=== PATIENT | female | born 1940 | race Caucasian/White ===

== ENCOUNTER → 2017-11-01 | Outpatient (CLI) | payer OTHER ==
[2016-03-09 09:29] VITALS: BP 148/72
--- NOTE | 2017-11-01 12:15 | CT ---
History: Dysarthria and left-sided weakness since Saturday Study: CT head without contrast. Sagittal and coronal reformations were provided. Comparison: February 19, 2016 Findings: There is no significant interval change. The ventricles and sulci are minimally prominent w ithout mass effect. There is moderate to severe diffuse periventricular white matter low attenuation. There is no intracranial hemorrhage or mass or edema or subdural collection of fluid. Impression: No interval change and no acute disease. Unchanged periventricular white-matter small-ves rudy disease. Reported By:
--- NOTE | 2017-11-01 16:19 | MRI ---
STUDY: MRI OF THE BRAIN WITHOUT GADOLINIUM HISTORY: Dysarthria and anarthria. Weakness to left side since Saturday. Technique: Multiplanar multi-sequence MRI of the brain was obtained utilizing standard departmental p rotocol. Sagittal and axial T1, axial T2, FLAIR, diffusion (DWI/ADC) images through the brain were pe rformed. Comparison: Head CTs from November 01, 2017. Findings: Note is made of failure fluid attenuation on multiple axial T2 FLAIR images from the latera l ventricles to the vertex. The sulci, cisterns and ventricles are prominent consistent with diffuse volume loss. There are confl uent and scattered foci of T2 prolongation in the periventricular and subcortical white matter of bot h hemispheres. This is a nonspecific finding which likely represents microangiopathic change in a pat ient of this age. There is a linear focus of decreased diffusion in the right basal ganglia. There is no evidence of acute territorial infarction, hemorrhage, mass, mass effect, or midline shift . There are no abnormal intra-axial or extra-axial fluid collections. The major intracranial vascular flow voids appear intact. The left vertebral artery appears dominant. IMPRESSION: 1. 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 2. Nonspecific white matter change and volume loss. Reported By:
== END ==
LOC: RAD 11:43
PROVIDERS: ATTEND Internal Medicine
DX: R47.1 Dysarthria and anarthria (principal)
CPT/HCPCS: 70450; 70551

== ENCOUNTER 2021-05-26 11:48 | Inpatient (IN) ==
[2021-05-26 11:57] VITALS: BMI 23.0
[2021-05-26 12:38] LABS: BASOPHILS # (AUTO) 0.1 X10^3/uL (0.0-0.1); BASOPHILS % (AUTO) 0.4 % (0.2-1.0); EOSINOPHILS % (AUTO) 0.2 % (0.9-2.9); HEMATOCRIT 26.9 % (36.0-47.0); HEMOGLOBIN 9.1 g/dL (12.0-16.0); LYMPHOCYTES # (AUTO) 0.5 X10^3/uL (1.3-2.9); LYMPHOCYTES % (AUTO) 2.4 % (21.0-51.0); MEAN CORPUSCULAR HEMOGLOBIN 33.9 pg (27.0-34.0); MEAN CORPUSCULAR HGB CONC 33.8 g/dL (33.0-35.0); MEAN CORPUSCULAR VOLUME 100.3 fL (80.0-100.0); MEAN PLATELET VOLUME 8.5 fL (7.4-11.0); MONOCYTES # (AUTO) 0.9 x10^3/uL (0.3-0.8); MONOCYTES % (AUTO) 4.3 % (0.0-13.0); NEUTROPHILS # (AUTO) 20.1 x10^3/uL (2.2-4.8); NEUTROPHILS % (AUTO) 92.7 % (42.0-75.0); PLATELET COUNT 408 X10^3/uL (150.0-450.0); RED BLOOD COUNT 2.68 X10^6/uL (3.5-5.4); RED CELL DISTRIBUTION WIDTH 17.3 % (11.6-16.5); WHITE BLOOD COUNT 21.7 X10^3/uL (3.6-10.0)
[2021-05-26] MEDS ORDERED: TYLENOL 325 MG TAB PO ONE ×2 (12:47→12:48)
--- NOTE | 2021-05-26 12:50 | RAD ---
HISTORYFALL, BILATERAL HIP PAINSTUDYHIPS BILATERALCOMPARISONNoneTECHNIQUEAP pelvis and lateral view of each hip.FINDINGSThere is bilateral coxa profunda mild right and mild left hip osteoarthrosis. PLIF from L4 through S1. Severe degenerative disc disease at L3-4. Mild bilateral SI joint osteoarthrosis. No fracture or aggressive osseous lesion.IMPRESSIONMild bilateral hip osteoarthrosis. No fracture identified.Electronically signed by: Graham Almanza (May 26, 2021 12:48:30)
--- NOTE | 2021-05-26 12:54 | RAD ---
HISTORYFALL, WILTON HIP AND LEFT LOWER LEG PAIN CROHN'S, SPINE, GBSTUDYLOWER LEG, TIB/FIB LEFTCOMPARISONNoneFINDINGSAP and lateral radiographs of the lower extremity demonstrate no evidence for acute cortical disruption. No significant soft tissue abnormality can be identified.IMPRESSIONNo acute fracture.Electronically signed by: TANK SUTTON (May 26, 2021 12:52:40)
[2021-05-26 13:18] LABS: ALANINE AMINOTRANSFERASE 26 Units/L (12-78); ALBUMIN 2.3 g/dL (3.4-5.0); ALKALINE PHOSPHATASE 194 Units/L (46-116); ASPARTATE AMINO TRANSFERASE 54 Units/L (15-37); BLOOD UREA NITROGEN 35 mg/dL (7-18); CALCIUM 8.7 mg/dL (8.5-10.1); CHLORIDE 92 mmol/L (98-107); CKMB % 0.4 % (<4); COR CA(FOR HYPOALB) 10.1 mg/dL (8.5-10.1); COR NA(FOR HYPERGLY) 127 mmol/L (136-145); CREATINE KINASE 517 Units/L (26-192); CREATINE KINASE MB 2.1 ng/mL (0-4.0); CREATININE 2.15 mg/dL (0.55-1.02); SODIUM 127 mmol/L (136-145); TOTAL PROTEIN 6.2 g/dL (6.4-8.2); TROPONIN I < 0.02 ng/mL (0-1.5); eGFR NON BLACK RACES 23 (>60)
[2021-05-26 13:21] LABS: BAND NEUTROPHILS % 10 % (0-10)
[2021-05-26 13:22] LABS: ANISOCYTOSIS SLIGHT; GIANT PLATELET FEW; METAMYELOCYTES % 1; OVALOCYTES SLIGHT; PLATELET MORPHOLOGY COMMENT ABNORMAL (NORMAL)
--- NOTE | 2021-05-26 13:24 | CT ---
BRAIN W/O CONHistory: DIZZINESS AND HX OF FALLTechnique: CT images of the brain were obtained without contrast. Reformatted images in the coronal and sagittal planes also generated for review. Automatic exposure was utilized.Comparison: No recent exams are available for comparison.Findings: There is age-appropriate generalized cerebral atrophy with commensurate ventricular and sulcal enlargement. 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 There are patchy and confluent areas of periventricular and subcortical white matter hypoattenuation, which are nonspecific but are likely on the basis of chronic small vessel ischemic disease. There is no intracranial hemorrhage, extra-axial collection, hydrocephalus, mass or midline shift. Visualized paranasal sinuses and mastoid air cells are clear. Imaged extracranial structures are grossly unremarkable.Impression:No acute intracranial abnormality.Age related atrophy and chronic ischemic changes as above.Electronically signed by: CHRISTIANO CARRERA (May 26, 2021 13:22:43)
--- NOTE | 2021-05-26 13:52 | DR.EXTPAIN ---
HPI Time seen Time Seen by Provider: 05/26/21 12:15 PCP Primary Care Physician: DR HOLT HPI Comment HPI Comment: Patient notes that she thinks that she passed out today. She remembers getting up to go to the bathroom, and then notes that she "came to" on the floor of her kitchen. Notes that she fell a few days ago and was seen by her PCP. CT head at that time was negative. Patient sent to ED today by PCP for xrays with plan to admit patient for further eval. Patient notes that her head is still hurting from the fall last week, but otherwise has no other complaint of pain. Complaint/Symptoms Chief Complaint:: PT FELL ABOUT TWO WEEKS AGO. PT STATES THAT SINCE THEN SHE HAS HAD INCREASING GENERALIZED WEAKNESS. PT C/O PAIN BEHIND EARS BILATERALLY BUT DENIES ANY OTHER PAIN OR DIZZINESS. COVID-19 Coronavirus risk:travel/contact w/high risk person: No Has patient experienced Coronavirus symptoms: No Source History Provided: Patient Mode of arrival Mode of Arrival: Ambulatory Timing Onset of Chief Complaint: 05/26/21 PMH PMH Past Medical History: Yes Past Medical History: Hypertension Past Medical History Comment: KIMMY 2 DISEASE, CHRONS Past Surgical History: Yes Surgical History: and Hysterectomy Family History History of Family Medical Conditions: Yes Family Medical History: Cancer Social History Does patient currently use any type of tobacco product: No Have you used tobacco products in the last 12 months: No Type of Tobacco Use: None Does any household member use tobacco: No Alcohol Use: None Do you use any recreational Drugs:: No Lives With: Alone Lives Where: Home Travel Risk Coronavirus risk:travel/contact w/high risk person: No Has patient experienced Coronavirus symptoms: No Infectious screening In the last 2 months have you had wt loss of >10#?: NO Have you had fever, night sweats or hemotysis?: No Have you traveled outside the country in the last 6 months?: No Isolation: Standard ROS Review of Systems Constitutional: See HPI Neurological: Headache All Other Systems: Reviewed and Negative PE Vital Signs Vitals: Temperature 99.5 F Pulse Rate [Standing] 104 Pulse Rate [Sitting] 100 Pulse Rate [Lying] 96 Pulse Rate 87 Respiratory Rate 20 Blood Pressure [Left Arm] 148/72 Blood Pressure [Right Arm] 130/63 Blood Pressure [Standing] 155/55 Blood Pressure [Sitting] 148/67 Blood Pressure [Lying] 150/64 Blood Pressure 134/56 O2 Sat by Pulse Oximetry 97 General Limitations: No Limitations General Appearance: Alert and In No Apparent Distress Head Head Exam: Normal Inspection, Atraumatic and Normocephalic Eyes Eye exam: Normal Appearance and EOMI ENT ENT Exam: Normal Exam Neck Neck Exam: Normal Inspection and Trachea Midline Chest Chest Inspection: Normal Inspection and Symmetric Chest Wall Rise Respiratory Respiratory Exam: Normal Lung Sounds Bilat Respiratory Exam: Bilateral: Clear to Auscultation Cardiovascular Cardiovascular Exam: Regular Rate, Normal Rhythm and Normal Heart Sounds Abdominal Exam Abdominal Exam: Normal Inspection, Normal Bowel Sounds and Soft Extremities Extremities Exam: Other (amll ecchymosis on left knee) Lower Extremities Hip/Pelvis Exam: Normal Inspection and Pelvis Stable Neurological Neurological Exam: Alert and Oriented X3 Psychiatric Psychiatric Exam: Normal Affect and Normal Mood Skin Skin Exam: Warm, Dry and Intact COURSE Treatment Treatment: uneventful ED course Consultation Consultation Comments: Patient admitted to Dr. Holt [facility] Labs Reviewed Laboratory Results Reviewed?: Yes Result Diagrams: 05/26/21 12:28 05/26/21 12:28 Laboratory: WBC 21.7 X10^3/uL (3.6-10.0) H 05/26/21 12:28 RBC 2.68 X10^6/uL (3.5-5.4) L 05/26/21 12:28 Hgb 9.1 g/dL (12.0-16.0) L 05/26/21 12:28 Hct 26.9 % (36.0-47.0) L 05/26/21 12:28 MCV 100.3 fL (80.0-100.0) H 05/26/21 12:28 MCH 33.9 pg (27.0-34.0) 05/26/21 12:28 MCHC 33.8 g/dL (33.0-35.0) 05/26/21 12:28 RDW 17.3 % (11.6-16.5) H 05/26/21 12:28 Plt Count 408 X10^3/uL (150.0-450.0) 05/26/21 12:28 Plt Count Comment Adequate (ADEQUATE) 05/26/21 12:28 MPV 8.5 fL (7.4-11.0) 05/26/21 12:28 Neut % (Auto) 92.7 % (42.0-75.0) H 05/26/21 12:28 Lymph % (Auto) 2.4 % (21.0-51.0) L 05/26/21 12:28 [place] % (Auto) 4.3 % (0.0-13.0) 05/26/21 12:28 Eos % (Auto) 0.2 % (0.9-2.9) L 05/26/21 12:28 Baso % (Auto) 0.4 % (0.2-1.0) 05/26/21 12:28 Neut # (Auto) 20.1 x10^3/uL (2.2-4.8) H 05/26/21 12:28 Lymph # (Auto) 0.5 X10^3/uL (1.3-2.9) L 05/26/21 12:28 [place] # (Auto) 0.9 x10^3/uL (0.3-0.8) H 05/26/21 12:28 Eos # (Auto) 0.0 x10^3/uL (0.0-0.2) 05/26/21 12:28 Baso # (Auto) 0.1 X10^3/uL (0.0-0.1) 05/26/21 12: Absolute Nucleated RBC 0.0 /100WBC 05/26/21 12:28 Total Counted 100 05/26/21 12:28 Neutrophils % (Manual) 84 % (39-76) H 05/26/21 12:28 Band Neutrophils % 10 % (0-10) 05/26/21 12:28 Lymphocytes % (Manual) 1 % (13-43) L 05/26/21 12:28 Monocytes % (Manual) 4 % (4-9) 05/26/21 12:28 Metamyelocytes % 1 05/26/21 12:28 Giant Platelets Few 05/26/21 12:28 Plt Morphology Comment Abnormal (NORMAL) A 05/26/21 12:28 RBC Morphology Abnormal (NORMAL) A 05/26/21 12:28 Anisocytosis Slight A 05/26/21 12:28 Macrocytosis Slight A 05/26/21 12:28 Ovalocytes Slight A 05/26/21 12:28 Sodium 127 mmol/L (136-145) L 05/26/21 12:28 Corrected Sodium 127 mmol/L (136-145) L 05/26/21 12:28 Potassium 5.3 mmol/L (3.5-5.1) H 05/26/21 12:28 Chloride 92 mmol/L (98-107) L 05/26/21 12:28 Carbon Dioxide 27.0 mmol/L (21-32) 05/26/21 12:28 BUN 35 mg/dL (7-18) H 05/26/21 12:28 Creatinine 2.15 mg/dL (0.55-1.02) H 05/26/21 12:28 Est GFR (MDRD) Af Amer 28 (>60) L 05/26/21 12:28 Est GFR (MDRD) Non-Af 23 (>60) L 05/26/21 12:28 Glucose 113 mg/dL (65-99) H 05/26/21 12:28 Calcium 8.7 mg/dL (8.5-10.1) 05/26/21 12:28 Corrected Calcium 10.1 mg/dL (8.5-10.1) 05/26/21 12:28 Total Bilirubin 0.90 mg/dL (0.2-1.0) 05/26/21 12:28 AST 54 Units/L (15-37) H 05/26/21 12:28 ALT 26 Units/L (12-78) 05/26/21 12:28 Alkaline Phosphatase 194 Units/L (46-116) H 05/26/21 12:28 Creatine Kinase 517 Units/L (26-192) H 05/26/21 12:28 CK-MB (CK-2) 2.1 ng/mL (0-4.0) 05/26/21 12:28 CK/CKMB % Calc 0.4 % (<4) 05/26/21 12:28 Troponin I < 0.02 ng/mL (0-1.5) 05/26/21 12:28 Total Protein 6.2 g/dL (6.4-8.2) L 05/26/21 12:28 Albumin 2.3 g/dL (3.4-5.0) L 05/26/21 12:28 Globulin 3.9 g/dL (2.5-4.5) 05/26/21 12:28 Albumin/Globulin Ratio 0.6 Ratio (1.1-2.1) L 05/26/21 12:28 XRAY X-ray Results: BRAIN W/O CON History: DIZZINESS AND HX OF FALL Technique: CT images of the brain were obtained without contrast. Reformatted images in the coronal and sagittal planes also generated for review. Automatic exposure was utilized. Comparison: No recent exams are available for comparison. Findings: There is age-appropriate generalized cerebral atrophy with commensurate ventricular and sulcal enlargement. 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 There are patchy and confluent areas of periventricular and subcortical white matter hypoattenuation, which are nonspecific but are likely on the basis of chronic small vessel ischemic disease. There is no intracranial hemorrhage, extra-axial collection, hydrocephalus, mass or midline shift. Visualized paranasal sinuses and mastoid air cells are clear. Imaged extracranial structures are grossly unremarkable. Impression: No acute intracranial abnormality. Age related atrophy and chronic ischemic changes as above. Electronically signed by: CHRISTIANO CARRERA (May 26, 2021 13:22:43) HISTORY FALL, BILATERAL HIP PAIN STUDY HIPS BILATERAL COMPARISON None TECHNIQUE AP pelvis and lateral view of each hip. FINDINGS There is bilateral coxa profunda mild right and mild left hip osteoarthrosis. PLIF from L4 through S1. Severe degenerative disc disease at L3-4. Mild bilateral SI joint osteoarthrosis. No fracture or aggressive osseous lesion. IMPRESSION Mild bilateral hip osteoarthrosis. No fracture identified. Electronically signed by: Graham Almanza (May 26, 2021 12:48:30) HISTORY FALL, WILTON HIP AND LEFT LOWER LEG PAIN CROHN'S, SPINE, GB STUDY LOWER LEG, TIB/FIB LEFT COMPARISON None FINDINGS AP and lateral radiographs of the lower extremity demonstrate no evidence for acute cortical disruption. No significant soft tissue abnormality can be identified. IMPRESSION No acute fracture. Electronically signed by: TANK SUTTON (May 26, 2021 12:52:40) Opioid Opioid Risk Tool Age (Kvng box if 16-45): No History of Preadolescent Sexual Abuse: No Total: 0 Total Score Risk Category: Low Risk Copyright: [facility] predicting aberrant behaviors Diagnosis Discharge Problem: Hyponatremia Syncopal episodes Qualifiers: Syncope type: unspecified Qualified Code(s): R55 - Syncope and collapse Acute renal failure Qualifiers: Acute renal failure type: unspecified Qualified Code(s): N17.9 - Acute kidney failure, unspecified
[2021-05-26] MEDS: NS 1000 ML 1,000 ML IV SCH (15:32)
--- NOTE | 2021-05-26 16:36 | RAD ---
HISTORYSYNCOPESTUDYCHEST, 1 VIEWCOMPARISONNoneTECHNIQUESingle frontal view of the chestFINDINGSThere is mild elevation of the right diaphragm. The heart size is upper limits of normal caliber. There are no consolidating pulmonary infiltrates. The pleural spaces are clear. There is no free air or pneumothorax. Linear fibroatelectatic changes are demonstrated within the dependent lung bases. Postsurgical changes of the bilateral shoulders are observed. No acute osseous abnormalities of the chest are identified. Degenerative changes of the bilateral glenohumeral joints noted.IMPRESSIONChronic senescent lung changes with no acute radiographic abnormalities of the chest otherwise noted.Electronically signed by: JAIRO TODD (May 26, 2021 16:37:34)
[2021-05-26] MEDS: TYLENOL 325 MG TAB PO PRN (21:00)
[2021-05-26] MEDS: XANAX PO PRN (21:00)
[2021-05-26] MEDS: NEURONTIN CAP 300 MG PO SCH (21:00)
[2021-05-26] MEDS: NORVASC TAB 10 MG PO SCH (21:00)
[2021-05-26 21:20] LABS: CKMB % 0.4 % (<4); CREATINE KINASE 454 Units/L (26-192); CREATINE KINASE MB 1.6 ng/mL (0-4.0); TROPONIN I < 0.02 ng/mL (0-1.5)
[2021-05-26] MEDS: SINEquan PO PRN (21:30)
[2021-05-27 00:20] LABS: BILIRUBIN,URINE NEGATIVE (NEGATIVE); BLOOD/HEMOGLOBIN,URINE 3+ (NEGATIVE); GLUCOSE, URINE NEGATIVE (NEGATIVE); KETONES,URINE NEGATIVE (NEGATIVE); LEUKOCYTE ESTERASE ,URINE 3+ (NEGATIVE); NITRITES,URINE NEGATIVE (NEGATIVE); PROTEIN,URINE 3+ (NEGATIVE); UROBILINOGEN,URINE NORMAL (NORMAL)
[2021-05-27 00:32] LABS: APPEARANCE,URINE CLOUDY (CLEAR); COLOR,URINE YELLOW (YELLOW)
[2021-05-27 00:33] LABS: BACTERIA,URINE 3+ /HPF (NEGATIVE); RBC,URINE NONE SEEN /HPF (0-3); SQUAMOUS EPITHELIAL CELL,UR NEGATIVE /HPF (NEGATIVE)
[2021-05-27 03:36] LABS: BASOPHILS # (AUTO) 0.1 X10^3/uL (0.0-0.1); BASOPHILS % (AUTO) 0.6 % (0.2-1.0); EOSINOPHILS # (AUTO) 0.1 x10^3/uL (0.0-0.2); EOSINOPHILS % (AUTO) 0.4 % (0.9-2.9); HEMATOCRIT 25.6 % (36.0-47.0); HEMOGLOBIN 8.8 g/dL (12.0-16.0); LYMPHOCYTES # (AUTO) 1.1 X10^3/uL (1.3-2.9); MEAN CORPUSCULAR HEMOGLOBIN 34.2 pg (27.0-34.0); MEAN CORPUSCULAR HGB CONC 34.4 g/dL (33.0-35.0); MEAN CORPUSCULAR VOLUME 99.4 fL (80.0-100.0); MEAN PLATELET VOLUME 8.6 fL (7.4-11.0); MONOCYTES # (AUTO) 0.9 x10^3/uL (0.3-0.8); MONOCYTES % (AUTO) 5.2 % (0.0-13.0); NEUTROPHILS # (AUTO) 15.8 x10^3/uL (2.2-4.8); NEUTROPHILS % (AUTO) 87.8 % (42.0-75.0); PLATELET COUNT 421 X10^3/uL (150.0-450.0); RED BLOOD COUNT 2.57 X10^6/uL (3.5-5.4); RED CELL DISTRIBUTION WIDTH 17.7 % (11.6-16.5)
[2021-05-27 04:07] LABS: ALANINE AMINOTRANSFERASE 29 Units/L (12-78); ALBUMIN 2.2 g/dL (3.4-5.0); ALKALINE PHOSPHATASE 183 Units/L (46-116); ASPARTATE AMINO TRANSFERASE 49 Units/L (15-37); BLOOD UREA NITROGEN 34 mg/dL (7-18); CALCIUM 8.2 mg/dL (8.5-10.1); CARBON DIOXIDE 21.4 mmol/L (21-32); CHLORIDE 96 mmol/L (98-107); COR CA(FOR HYPOALB) 9.6 mg/dL (8.5-10.1); CREATININE 1.88 mg/dL (0.55-1.02); SODIUM 132 mmol/L (136-145); TOTAL PROTEIN 5.4 g/dL (6.4-8.2); eGFR NON BLACK RACES 27 (>60)
[2021-05-27 04:42] LABS: CKMB % 0.3 % (<4); CREATINE KINASE 381 Units/L (26-192); CREATINE KINASE MB 1.3 ng/mL (0-4.0); TROPONIN I < 0.02 ng/mL (0-1.5)
[2021-05-27] MEDS: TYLENOL 325 MG TAB PO PRN (05:20)
[2021-05-27] MEDS: NS 1000 ML 1,000 ML IV SCH ×3 (05:20→16:44)
[2021-05-27] MEDS ORDERED: ALLEGRA ONE (08:39)
[2021-05-27] MEDS ORDERED: INVANZ INJ 1 GM VIAL 1 GM in NS 100 ML IV + SPIKE MINIBAG* 100 ML IV SCH (09:00)
[2021-05-27] MEDS: ALLEGRA PO SCH (09:21)
[2021-05-27] MEDS: XANAX PO PRN ×2 (09:21→21:34)
--- NOTE | 2021-05-27 10:36 | DR.H&P ---
H&P - History & Physical for Day of: H&P Date: 05/26/21 - Chief Complaint Chief Complaint: SYNCOPE, HEADACHE, BILATERAL HIP PAIN, LEFT LEG PAIN, WEAKNESS - History of Present Illness History of Present Illness: IS A 81 YEAR OLD PATIENT OF OURS. SHE REPORTED TO THE ER WITH COMPLAINTS OF A SYNCOPAL EPISODE. PATIENT ONLY REMEMBERS WAKING UP ON THE FLOOR OF HER KITCHEN. SHE COMPLAINS OF A HEADACHE, BILATERAL HIP PAIN, LEFT LEG PAIN, AND GENERALIZED WEAKNESS. PATIENT REPORTS THAT HEAD PAIN IS BEHIND EARS BILATERALLY. SHE CHARACTERIZES IT THROBBING AND RATED IT A 6/10 ON ARRIVAL. PATIENT ADMITS TO [facility] [place] RECENTLY. HER PMH INCLUDES HTN, JAKS 2 DISEASE, AND CHRONS. ON ARRIVAL TO THE ER, VITALS WERE 99.5-87-20-97%-134/56. LABS WERE OBTAINED. ABNORMAL LAB VALUES INCLUDE THE FOLLOWING: WBC 21.7, RBC 2.68, HGB 9.1, HCT 26.9, SODIUM 127, POTASSIUM 5.3, CHLORIDE 92, BUN 35, CREATININE 2.15, GLUCOSE 113, AST 54, ALK PHOS 194, CREATINE KINASE 517, TOTAL PROTEIN 6.2, ALBUMIN 2.3. CARDIAC ENZYMES WERE WITHIN NORMAL LIMITS. A URINALYSIS WAS OBTAINED AND REVEALED: WBC TNTC, RBC NONE SEEN, LEUKOCYTES 3+, BACTERIA 3+, OCCULT BLOOD 3+, PROTEIN 3+. URINE AND BLOOD CULTURES WERE SET UP. A BRAIN CT WAS OBTAINED AND REVEALED: There is age- appropriate generalized cerebral atrophy with commensurate ventricular and sulcal enlargement. 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 There are patchy and confluent areas of periventricular and subcortical white matter hypoattenuation, which are nonspecific but are likely on the basis of chronic small vessel ischemic disease. There is no intracranial hemorrhage, extra-axial collection, hydrocephalus, mass or midline shift. Visualized paranasal sinuses and mastoid air cells are clear. Imaged extracranial structures are grossly unremarkable. BILATERAL HIP XRAYS WERE OBTAINED AND REVEALED: Mild bilateral hip osteoarthrosis. No fracture identified. LEFT TIB/FIB XRAY REVEALED: AP and lateral radiographs of the lower extremity demonstrate no evidence for acute cortical disruption. No significant soft tissue abnormality can be identified. A CHEST XRAY WAS OBTAINED AND REVEALED: Chronic senescent lung changes with no acute radiographic abnormalities of the chest otherwise noted. IN THE ER, SHE WAS GIVEN TYLENOL 650MG PO X 1. SHE WAS ADMITTED TO THE HOSPTIAL FOR FURTHER EVALUATION AND TREATMENT OF SYNCOPE, HYPONATREMIA, ACUTE RENAL FAILURE, AND URINARY TRACT INFECTION. SHE WAS STARTED ON NORMAL SALINE AT 80 ML/HR, INVANZ 0.5G IV DAILY, HEPARIN 5,000 UNITS SC Q12H, CORTISPORIN EAR DRIPS TID, XANAX 1MG PO BID, NORVASC 10MG PO HS, TRUMAN 180MG PO DAILY, NEURONTIN 300MG PO HS. OTHERWISE, WE PLAN TO FOLLOW UP WITH AM LABS AND CONTINUE TO MONITOR. WE WILL HAVE PHYSICAL THERAPY EVALUATE PATIENT. TIME SPENT ON CLINICAL ASSESSMENT, REVIEWING LABS AND IMAGING, DECISION MAKING, AND DOCUMENTATION GREATER THAN 75 MINUTES. - Past Medical History Past Medical History: Asthma, Hypertension Additional Medical History: TIA, CROHN'S DISEASE - Past Surgical History Surgical History: Appendectomy, , Cholecystectomy, Hysterectomy, Joint Replacement, Ortho Surgery, Tonsillectomy - Family History Family Medical History: Cancer - Social History Does patient currently use any type of tobacco product: No Have you used tobacco products in the last 12 months: No Type of Tobacco Use: None Does any household member use tobacco: No Alcohol Use: None Drug Use: None - Medications Home Medications: levofloxacin [From Levaquin] Allergy (Verified 05/26/21 21:12) meperidine [From Demerol] Allergy (Verified 05/26/21 21:12) CONTINUE taking the following medications amlodipine 10 mg PO HS 05/26/21 [History] doxepin 25 mg PO HS PRN 05/26/21 [History] fexofenadine [Truman] 180 mg PO DAILY 05/26/21 [History] gabapentin 300 mg PO HS 05/26/21 [History] - Review of Systems Constitutional: Weakness, Malaise Eyes: No Symptoms Reported ENT: No Symptoms Reported Respiratory: No Symptoms Reported Cardiovascular: Light Headedness Gastrointestinal: No Symptoms Reported Genitourinary: No Symptoms Reported Musculoskeletal: See HPI, Leg Pain, Other (BILATERAL HIP PAIN) Skin: No Symptoms Reported Neurological: See HPI, Weakness, Other (HEADACHE ) - Physical Exam Vital Signs: Temperature 99.1 F Pulse Rate [Right Radial] 88 Pulse Rate [Standing] 104 Pulse Rate [Sitting] 100 Pulse Rate [Lying] 96 Pulse Rate 92 Respiratory Rate 20 Blood Pressure [Left Arm] 159/72 Blood Pressure [Right Arm] 130/63 Blood Pressure [Standing] 155/55 Blood Pressure [Sitting] 148/67 Blood Pressure [Lying] 150/64 Blood Pressure 131/61 O2 Sat by Pulse Oximetry 91 Oriented: Normal Eyes: Normal Ear: Normal Nose: Normal Throat: Normal Respiratory: Diminished Throughout Cardiovascular: Normal : Normal Auscultation: Bowel Sounds: Normal Palpation: Normal Tenderness: Normal Skin: Normal Musculoskeletal: Left, Leg, Tender Psychiatric: Normal Mood Description: Calm Affect: Normal Speech Pattern: Clear - Assessment/Plan (1) Acute renal failure Qualifiers: Acute renal failure type: unspecified Qualified Code(s): N17.9 - Acute kidney failure, unspecified Status: Acute Plan: ADMIT, NORMAL SALINE AT 80 ML/HR, INVANZ 0.5G IV DAILY, HEPARIN 5,000 UNITS SC Q12H, CORTISPORIN EAR DRIPS TID, XANAX 1MG PO BID, NORVASC 10MG PO HS, TRUMAN 180MG PO DAILY, NEURONTIN 300MG PO HS. (2) Hyponatremia Status: Acute (3) Urinary tract infection Qualifiers: Urinary tract infection type: acute cystitis Hematuria presence: without hematuria Qualified Code(s): N30.00 - Acute cystitis without hematuria Status: Acute (4) Syncopal episodes Qualifiers: Syncope type: unspecified Qualified Code(s): R55 - Syncope and collapse Status: Acute - Allergies Allergies/Adverse Reactions: Allergies Allergy/AdvReac Type Severity Reaction Status Date / Time levofloxacin [From Levaquin] Allergy Verified 05/26/21 21:12 meperidine [From Demerol] Allergy Verified 05/26/21 21:12
[2021-05-27] MEDS: CORTISPORIN OTIC SUSP LEFT EAR SCH ×3 (10:50→21:33)
[2021-05-27] MEDS: HEPARIN SODIUM INJ 5000 UNITS SC SCH ×2 (11:42→20:59)
[2021-05-27] MEDS: INVANZ INJ 1 GM VIAL 0.5 GM in NS 50 ML IV 50 ML IV SCH (11:43)
[2021-05-27] MEDS: NEURONTIN CAP 300 MG PO SCH (20:59)
[2021-05-27] MEDS: NORVASC TAB 10 MG PO SCH (20:59)
[2021-05-27] MEDS: SINEquan PO PRN (21:33)
[2021-05-28 06:31] LABS: BASOPHILS # (AUTO) 0.1 X10^3/uL (0.0-0.1); BASOPHILS % (AUTO) 0.8 % (0.2-1.0); EOSINOPHILS # (AUTO) 0.2 x10^3/uL (0.0-0.2); EOSINOPHILS % (AUTO) 1.3 % (0.9-2.9); HEMATOCRIT 26.1 % (36.0-47.0); HEMOGLOBIN 9.2 g/dL (12.0-16.0); LYMPHOCYTES # (AUTO) 0.7 X10^3/uL (1.3-2.9); LYMPHOCYTES % (AUTO) 5.3 % (21.0-51.0); MEAN CORPUSCULAR HGB CONC 35.3 g/dL (33.0-35.0); MEAN CORPUSCULAR VOLUME 99.2 fL (80.0-100.0); MEAN PLATELET VOLUME 8.2 fL (7.4-11.0); MONOCYTES # (AUTO) 0.6 x10^3/uL (0.3-0.8); MONOCYTES % (AUTO) 4.4 % (0.0-13.0); NEUTROPHILS # (AUTO) 11.7 x10^3/uL (2.2-4.8); NEUTROPHILS % (AUTO) 88.2 % (42.0-75.0); PLATELET COUNT 422 X10^3/uL (150.0-450.0); RED BLOOD COUNT 2.63 X10^6/uL (3.5-5.4); RED CELL DISTRIBUTION WIDTH 17.7 % (11.6-16.5); WHITE BLOOD COUNT 13.3 X10^3/uL (3.6-10.0)
[2021-05-28 06:45] LABS: ALANINE AMINOTRANSFERASE 22 Units/L (12-78); ALKALINE PHOSPHATASE 162 Units/L (46-116); ASPARTATE AMINO TRANSFERASE 33 Units/L (15-37); BLOOD UREA NITROGEN 30 mg/dL (7-18); CALCIUM 8.7 mg/dL (8.5-10.1); CHLORIDE 101 mmol/L (98-107); COR CA(FOR HYPOALB) 10.3 mg/dL (8.5-10.1); CREATININE 1.67 mg/dL (0.55-1.02); SODIUM 135 mmol/L (136-145); TOTAL PROTEIN 5.9 g/dL (6.4-8.2); eGFR NON BLACK RACES 31 (>60)
[2021-05-28] MEDS: CORTISPORIN OTIC SUSP LEFT EAR SCH ×3 (06:59→21:17)
[2021-05-28] MEDS: NS 1000 ML 1,000 ML IV SCH ×2 (06:59→19:47)
[2021-05-28] MEDS ORDERED: ALLEGRA ONE (08:22)
[2021-05-28] MEDS: HEPARIN SODIUM INJ 5000 UNITS SC SCH ×2 (08:58→21:17)
[2021-05-28] MEDS: ALLEGRA PO SCH (09:09)
[2021-05-28] MEDS: XANAX PO PRN ×2 (09:09→21:18)
[2021-05-28] MEDS: INVANZ INJ 1 GM VIAL 0.5 GM in NS 50 ML IV 50 ML IV SCH (09:10)
--- NOTE | 2021-05-28 19:46 | PCM.PROG ---
Progress Note - Progress Note for Day of Date of Exam: 05/28/21 - Subjective Subjective: WAS ADMITTED FOR TREATMENT OF ACUTE RENAL FAILURE, HYPONATREMIA, UTI, RHABDOMYOLYSIS, AND SYNCOPE. TODAY, SHE IS ALERT AND ORIENTED, LYING IN BED ON MORNING ROUNDS. SHE CONTINUES WITH COMPLAINTS OF GENERALIZED WEAKNESS AND LOWER EXTREMITY MUSCLE ACHES. SHE DOES ADMIT TO SLIGHT IMPROVEMENT IN SYMPTOMS SINCE ADMISSION. ON EXAMINATION, HEART IS REGULAR IN RATE AND RHYTHM. BILATERAL LUNGS ARE NOTED TO HAVE DIMINISHED LUNG SOUNDS THROUGHOUT. ABDOMEN IS ROUND, SOFT, AND NON-TENDER WITH NORMAL BOWEL SOUNDS NOTED IN ALL QUADRANTS. HER VITALS THIS MORNING ARE: 98.8-84-20-93%-121/69. LABS WERE OBTAINED. ABNORMAL LAB VALUES INCLUDE THE FOLLOWING: WBC 13.3, RBC 2.63, HGB 9.2, HCT 26.1, SODIUM 135, BUN 30, CREATININE 1.67, ALK PHOS 162, TOTAL PROTEIN 5.9, ALBUMIN 2.0. URINE AND BLOOD CULTURES ARE PENDING. SHE IS CURRENTLY RECEIVING NORMAL SALINE AT 80 ML/HR, INVANZ 0.5G IV DAILY, HEPARIN 5,000 UNITS SC Q12H, CORTISPORIN EAR DRIPS TID, XANAX 1MG PO BID, NORVASC 10MG PO HS, TRUMAN 180MG PO DAILY, NEURONTIN 300MG PO HS. WE WILL CONTINUE WITH CURRENT PLAN OF CARE TODAY. OTHERWISE, WE WILL FOLLOW UP WITH AM LABS AND CONTINUE TO MONITOR. TIME SPENT ON CLINICAL ASSESSMENT, REVIEWING LABS AND IMAGING, DECISION MAKING, AND DOCUMENTATION WAS GREATER THAN 45 MINUTES. - Past Medical Family Social History Past Med/Fam/Surg Hx: No changes since H&P Allergies: Allergies levofloxacin [From Levaquin] Allergy (Verified 05/26/21 21:12) meperidine [From Demerol] Allergy (Verified 05/26/21 21:12) - Review of Systems ROS: No change since H&P - Vital Signs and I&O's Vital Signs: Temperature 98.2 F Pulse Rate [Right Radial] 80 Pulse Rate [Standing] 104 Pulse Rate [Sitting] 100 Pulse Rate [Lying] 96 Pulse Rate 92 Respiratory Rate 18 Blood Pressure [Left Arm] 141/61 Blood Pressure [Right Arm] 130/63 Blood Pressure [Standing] 155/55 Blood Pressure [Sitting] 148/67 Blood Pressure [Lying] 150/64 Blood Pressure 131/61 O2 Sat by Pulse Oximetry 94 Intake and Output: Intake & Output 05/26/21 05/27/21 05/28/21 05/29/21 11:59 11:59 11:59 11:59 Intake Total 1681 / 1681 2924 / 2924 792 / 792 Balance 1681 / 1681 2924 / 2924 792 / 792 - Physical Exam Oriented: Normal Eyes: Normal Ear: Normal Nose: Normal Throat: Normal Respiratory: Generalized, Diminished Cardiovascular: Normal : Normal Auscultation: Bowel Sounds: Normal Palpation: Normal Tenderness: Normal Skin: Normal Musculoskeletal: Left, Leg, Tender Psychiatric: Normal Mood Description: Calm Affect: Normal Speech Pattern: Clear, Appropriate - Laboratory and Diagnostics Result Diagrams: 05/28/21 05:15 05/28/21 05:15 Labs: 05/27/21 00:04 Urine,Clean Catch Urine Culture - Preliminary 05/26/21 16:12 Blood Blood Culture - Preliminary 05/26/21 15:58 Blood Blood Culture - Preliminary Laboratory WBC 13.3 X10^3/uL (3.6-10.0) H 05/28/21 05:15 RBC 2.63 X10^6/uL (3.5-5.4) L 05/28/21 05:15 Hgb 9.2 g/dL (12.0-16.0) L 05/28/21 05:15 Hct 26.1 % (36.0-47.0) L 05/28/21 05:15 MCV 99.2 fL (80.0-100.0) 05/28/21 05:15 MCH 35.0 pg (27.0-34.0) H 05/28/21 05:15 MCHC 35.3 g/dL (33.0-35.0) H 05/28/21 05:15 RDW 17.7 % (11.6-16.5) H 05/28/21 05:15 Plt Count 422 X10^3/uL (150.0-450.0) 05/28/21 05:15 Plt Count Comment Adequate (ADEQUATE) 05/26/21 12:28 MPV 8.2 fL (7.4-11.0) 05/28/21 05:15 Neut % (Auto) 88.2 % (42.0-75.0) H 05/28/21 05:15 Lymph % (Auto) 5.3 % (21.0-51.0) L 05/28/21 05:15 [place] % (Auto) 4.4 % (0.0-13.0) 05/28/21 05:15 Eos % (Auto) 1.3 % (0.9-2.9) 05/28/21 05:15 Baso % (Auto) 0.8 % (0.2-1.0) 05/28/21 05:15 Neut # (Auto) 11.7 x10^3/uL (2.2-4.8) H 05/28/21 05:15 Lymph # (Auto) 0.7 X10^3/uL (1.3-2.9) L 05/28/21 05:15 [place] # (Auto) 0.6 x10^3/uL (0.3-0.8) 05/28/21 05:15 Eos # (Auto) 0.2 x10^3/uL (0.0-0.2) 05/28/21 05:15 Baso # (Auto) 0.1 X10^3/uL (0.0-0.1) 05/28/21 05:15 Absolute Nucleated RBC 0.0 /100WBC 05/28/21 05:15 Total Counted 100 05/26/21 12:28 Neutrophils % (Manual) 84 % (39-76) H 05/26/21 12:28 Band Neutrophils % 10 % (0-10) 05/26/21 12:28 Lymphocytes % (Manual) 1 % (13-43) L 05/26/21 12:28 Monocytes % (Manual) 4 % (4-9) 05/26/21 12:28 Metamyelocytes % 1 05/26/21 12:28 Giant Platelets Few 05/26/21 12:28 Plt Morphology Comment Abnormal (NORMAL) A 05/26/21 12:28 RBC Morphology Abnormal (NORMAL) A 05/26/21 12:28 Anisocytosis Slight A 05/26/21 12:28 Macrocytosis Slight A 05/26/21 12:28 Ovalocytes Slight A 05/26/21 12:28 Sodium 135 mmol/L (136-145) L 05/28/21 05:15 Corrected Sodium TNP 05/28/21 05:15 Potassium 3.7 mmol/L (3.5-5.1) 05/28/21 05:15 Chloride 101 mmol/L (98-107) 05/28/21 05:15 Carbon Dioxide 23.0 mmol/L (21-32) 05/28/21 05:15 BUN 30 mg/dL (7-18) H 05/28/21 05:15 Creatinine 1.67 mg/dL (0.55-1.02) H 05/28/21 05:15 Est GFR (MDRD) Af Amer 38 (>60) L 05/28/21 05:15 Est GFR (MDRD) Non-Af 31 (>60) L 05/28/21 05:15 Glucose 94 mg/dL (65-99) 05/28/21 05:15 Lactic Acid 1.4 mmol/L (0.4-2.0) 05/26/21 16:12 Calcium 8.7 mg/dL (8.5-10.1) 05/28/21 05:15 Corrected Calcium 10.3 mg/dL (8.5-10.1) H 05/28/21 05:15 Total Bilirubin 0.50 mg/dL (0.2-1.0) 05/28/21 05:15 AST 33 Units/L (15-37) 05/28/21 05:15 ALT 22 Units/L (12-78) 05/28/21 05:15 Alkaline Phosphatase 162 Units/L (46-116) H 05/28/21 05:15 Creatine Kinase 381 Units/L (26-192) H 05/27/21 02:57 CK-MB (CK-2) 1.3 ng/mL (0-4.0) 05/27/21 02:57 CK/CKMB % Calc 0.3 % (<4) 05/27/21 02:57 Troponin I < 0.02 ng/mL (0-1.5) 05/27/21 02:57 Total Protein 5.9 g/dL (6.4-8.2) L 05/28/21 05:15 Albumin 2.0 g/dL (3.4-5.0) L 05/28/21 05:15 Globulin 3.9 g/dL (2.5-4.5) 05/28/21 05:15 Albumin/Globulin Ratio 0.5 Ratio (1.1-2.1) L 05/28/21 05:15 Specimen Type Clean catch urine 05/27/21 00:04 Urine Color Yellow (YELLOW) 05/27/21 00:04 Urine Appearance Cloudy (CLEAR) 05/27/21 00:04 Urine pH 7.0 (5.0 - 8.0) 05/27/21 00:04 Ur Specific [place] 1.010 (1.000-1.030) 05/27/21 00:04 Urine Protein 3+ (NEGATIVE) 05/27/21 00:04 Urine Glucose (UA) Negative (NEGATIVE) 05/27/21 00:04 Urine Ketones Negative (NEGATIVE) 05/27/21 00:04 Urine Occult Blood 3+ (NEGATIVE) 05/27/21 00:04 Urine Nitrite Negative (NEGATIVE) 05/27/21 00:04 Urine Bilirubin Negative (NEGATIVE) 05/27/21 00:04 Urine Urobilinogen Normal (NORMAL) 05/27/21 00:04 Ur Leukocyte Esterase 3+ (NEGATIVE) 05/27/21 00:04 Urine RBC None seen /HPF (0-3) 05/27/21 00:04 Urine WBC Tntc /HPF (0-5) A 05/27/21 00:04 Ur Squamous Epith Cells Negative /HPF (NEGATIVE) 05/27/21 00:04 Urine Bacteria 3+ /HPF (NEGATIVE) 05/27/21 00:04 Ur Culture Indicated? Yes/culture set up 05/27/21 00:04 - Plan (1) Acute renal failure Status: Acute Qualifiers: Acute renal failure type: unspecified Qualified Code(s): N17.9 - Acute kidney failure, unspecified Plan: NORMAL SALINE AT 80 ML/HR, INVANZ 0.5G IV DAILY, HEPARIN 5,000 UNITS SC Q12H, CORTISPORIN EAR DRIPS TID, XANAX 1MG PO BID, NORVASC 10MG PO HS, TRUMAN 180MG PO DAILY, NEURONTIN 300MG PO HS. (2) Hyponatremia Status: Acute (3) Urinary tract infection Status: Acute Qualifiers: Urinary tract infection type: acute cystitis Hematuria presence: without hematuria Qualified Code(s): N30.00 - Acute cystitis without hematuria (4) Rhabdomyolysis Status: Acute Qualifiers: Rhabdomyolysis type: non-traumatic Qualified Code(s): M62.82 - Rhabdomyolysis (5) Syncopal episodes Status: Acute Qualifiers: Syncope type: unspecified Qualified Code(s): R55 - Syncope and collapse
[2021-05-28] MEDS: NORVASC TAB 10 MG PO SCH (21:17)
[2021-05-28] MEDS: NEURONTIN CAP 300 MG PO SCH (21:17)
[2021-05-28] MEDS: SINEquan PO PRN (21:18)
[2021-05-29] MEDS: NS 1000 ML 1,000 ML IV SCH ×3 (00:21→16:26)
[2021-05-29] MEDS: CORTISPORIN OTIC SUSP LEFT EAR SCH ×3 (05:27→21:15)
[2021-05-29 06:29] LABS: BASOPHILS # (AUTO) 0.2 X10^3/uL (0.0-0.1); BASOPHILS % (AUTO) 1.3 % (0.2-1.0); EOSINOPHILS # (AUTO) 0.2 x10^3/uL (0.0-0.2); EOSINOPHILS % (AUTO) 1.3 % (0.9-2.9); HEMATOCRIT 31.1 % (36.0-47.0); HEMOGLOBIN 10.5 g/dL (12.0-16.0); LYMPHOCYTES # (AUTO) 0.8 X10^3/uL (1.3-2.9); LYMPHOCYTES % (AUTO) 6.2 % (21.0-51.0); MEAN CORPUSCULAR HEMOGLOBIN 34.1 pg (27.0-34.0); MEAN CORPUSCULAR HGB CONC 33.7 g/dL (33.0-35.0); MEAN CORPUSCULAR VOLUME 101.3 fL (80.0-100.0); MEAN PLATELET VOLUME 8.2 fL (7.4-11.0); MONOCYTES # (AUTO) 0.6 x10^3/uL (0.3-0.8); MONOCYTES % (AUTO) 4.5 % (0.0-13.0); NEUTROPHILS # (AUTO) 11.1 x10^3/uL (2.2-4.8); NEUTROPHILS % (AUTO) 86.7 % (42.0-75.0); PLATELET COUNT 480 X10^3/uL (150.0-450.0); RED BLOOD COUNT 3.07 X10^6/uL (3.5-5.4); RED CELL DISTRIBUTION WIDTH 17.6 % (11.6-16.5); WHITE BLOOD COUNT 12.8 X10^3/uL (3.6-10.0)
[2021-05-29 07:05] LABS: ALANINE AMINOTRANSFERASE 24 Units/L (12-78); ALBUMIN 2.4 g/dL (3.4-5.0); ALKALINE PHOSPHATASE 182 Units/L (46-116); ASPARTATE AMINO TRANSFERASE 33 Units/L (15-37); BLOOD UREA NITROGEN 28 mg/dL (7-18); CALCIUM 9.5 mg/dL (8.5-10.1); CHLORIDE 103 mmol/L (98-107); CKMB % 1.4 % (<4); COR CA(FOR HYPOALB) 10.8 mg/dL (8.5-10.1); CREATINE KINASE 80 Units/L (26-192); CREATINE KINASE MB 1.1 ng/mL (0-4.0); CREATININE 1.56 mg/dL (0.55-1.02); SODIUM 139 mmol/L (136-145); TROPONIN I < 0.02 ng/mL (0-1.5); eGFR NON BLACK RACES 34 (>60)
[2021-05-29] MEDS ORDERED: ALLEGRA ONE (08:02)
[2021-05-29] MEDS: INVANZ INJ 1 GM VIAL 0.5 GM in NS 50 ML IV 50 ML IV SCH (08:12)
[2021-05-29] MEDS: HEPARIN SODIUM INJ 5000 UNITS SC SCH ×2 (08:13→08:33)
[2021-05-29] MEDS: ALLEGRA PO SCH (08:13)
--- NOTE | 2021-05-29 10:25 | PCM.PROG ---
Progress Note - Progress Note for Day of Date of Exam: 05/29/21 - Subjective Subjective: WAS ADMITTED FOR TREATMENT OF ACUTE RENAL FAILURE, HYPONATREMIA, UTI, RHABDOMYOLYSIS, AND SYNCOPE. TODAY, SHE IS ALERT AND ORIENTED, LYING IN BED ON MORNING ROUNDS. SHE CONTINUES WITH COMPLAINTS OF GENERALIZED WEAKNESS AND LOWER EXTREMITY MUSCLE ACHES. SHE ALSO REPORTS PERSISTENT HEADACHE AND LEFT EAR PAIN. PATIENT STATES, I FEEL LIKE THERE IS FLUID IN THERE. ON EXAMINATION, HEART IS REGULAR IN RATE AND RHYTHM. BILATERAL LUNGS ARE NOTED TO HAVE DIMINISHED LUNG SOUNDS THROUGHOUT. ABDOMEN IS ROUND, SOFT, AND NON-TENDER WITH NORMAL BOWEL SOUNDS NOTED IN ALL QUADRANTS. HER VITALS THIS MORNING ARE: 99.0-88-22-93%-126/70. LABS WERE OBTAINED. ABNORMAL LAB VALUES INCLUDE THE FOLLOWING: WBC 12.8, RBC 3.07, HGB 10.5, HCT 31.1, PLT COUNT 480, BUN 28, CREATININE 1.56, ALK PHOS 182, ALBUMIN 2.4. URINE AND BLOOD CULTURES ARE PENDING. SHE IS CURRENTLY RECEIVING NORMAL SALINE AT 80 ML/HR, INVANZ 0.5G IV DAILY, HEPARIN 5,000 UNITS SC Q12H, CORTISPORIN EAR DRIPS TID, XANAX 1MG PO BID, NORVASC 10MG PO HS, TRUMAN 180MG PO DAILY, NEURONTIN 300MG PO HS. WE WILL CONTINUE WITH CURRENT PLAN OF CARE TODAY AND ADD SINGULAIR 10MG PO HS AND FIORICET 2 TABS PO BID. OTHERWISE, WE WILL FOLLOW UP WITH AM LABS AND CONTINUE TO MONITOR. TIME SPENT ON CLINICAL ASSESSMENT, REVIEWING LABS AND IMAGING, DECISION MAKING, AND DOCUMENTATION WAS GREATER THAN 45 MINUTES. - Past Medical Family Social History Past Med/Fam/Surg Hx: No changes since H&P Allergies: Allergies levofloxacin [From Levaquin] Allergy (Verified 05/26/21 21:12) meperidine [From Demerol] Allergy (Verified 05/26/21 21:12) - Review of Systems ROS: No change since H&P - Vital Signs and I&O's Vital Signs: Temperature 99 F Pulse Rate [Right Radial] 88 Pulse Rate [Standing] 104 Pulse Rate [Sitting] 100 Pulse Rate [Lying] 96 Pulse Rate 92 Respiratory Rate 22 Blood Pressure [Left Arm] 126/70 Blood Pressure [Right Arm] 130/62 Blood Pressure [Standing] 155/55 Blood Pressure [Sitting] 148/67 Blood Pressure [Lying] 150/64 Blood Pressure 131/61 O2 Sat by Pulse Oximetry 93 Intake and Output: Intake & Output 05/26/21 05/27/21 05/28/21 05/29/21 11:59 11:59 11:59 11:59 Intake Total 1681 / 1681 2924 / 2924 2439 / 2439 Balance 1681 / 1681 2924 / 2924 2439 / 2439 - Physical Exam Oriented: Normal Eyes: Normal Ear: Left Nose: Normal Throat: Normal Respiratory: Generalized, Diminished Cardiovascular: Normal : Normal Auscultation: Bowel Sounds: Normal Palpation: Normal Tenderness: Normal Skin: Normal Musculoskeletal: Left, Leg, Tender Psychiatric: Normal Mood Description: Calm Affect: Normal Speech Pattern: Clear, Appropriate - Laboratory and Diagnostics Result Diagrams: 05/29/21 05:43 05/29/21 05:43 Labs: 05/27/21 00:04 Urine,Clean Catch Urine Culture - Final Escherichia Coli 05/26/21 16:12 Blood Blood Culture - Preliminary 05/26/21 15:58 Blood Blood Culture - Preliminary Laboratory WBC 12.8 X10^3/uL (3.6-10.0) H 05/29/21 05:43 RBC 3.07 X10^6/uL (3.5-5.4) L 05/29/21 05:43 Hgb 10.5 g/dL (12.0-16.0) L 05/29/21 05:43 Hct 31.1 % (36.0-47.0) L 05/29/21 05:43 MCV 101.3 fL (80.0-100.0) H 05/29/21 05:43 MCH 34.1 pg (27.0-34.0) H 05/29/21 05:43 MCHC 33.7 g/dL (33.0-35.0) 05/29/21 05:43 RDW 17.6 % (11.6-16.5) H 05/29/21 05:43 Plt Count 480 X10^3/uL (150.0-450.0) H 05/29/21 05:43 Plt Count Comment Adequate (ADEQUATE) 05/26/21 12:28 MPV 8.2 fL (7.4-11.0) 05/29/21 05:43 Neut % (Auto) 86.7 % (42.0-75.0) H 05/29/21 05:43 Lymph % (Auto) 6.2 % (21.0-51.0) L 05/29/21 05:43 [place] % (Auto) 4.5 % (0.0-13.0) 05/29/21 05:43 Eos % (Auto) 1.3 % (0.9-2.9) 05/29/21 05:43 Baso % (Auto) 1.3 % (0.2-1.0) H 05/29/21 05:43 Neut # (Auto) 11.1 x10^3/uL (2.2-4.8) H 05/29/21 05:43 Lymph # (Auto) 0.8 X10^3/uL (1.3-2.9) L 05/29/21 05:43 [place] # (Auto) 0.6 x10^3/uL (0.3-0.8) 05/29/21 05:43 Eos # (Auto) 0.2 x10^3/uL (0.0-0.2) 05/29/21 05:43 Baso # (Auto) 0.2 X10^3/uL (0.0-0.1) H 05/29/21 05:43 Absolute Nucleated RBC 0.0 /100WBC 05/29/21 05:43 Total Counted 100 05/26/21 12:28 Neutrophils % (Manual) 84 % (39-76) H 05/26/21 12:28 Band Neutrophils % 10 % (0-10) 05/26/21 12:28 Lymphocytes % (Manual) 1 % (13-43) L 05/26/21 12:28 Monocytes % (Manual) 4 % (4-9) 05/26/21 12:28 Metamyelocytes % 1 05/26/21 12:28 Giant Platelets Few 05/26/21 12:28 Plt Morphology Comment Abnormal (NORMAL) A 05/26/21 12:28 RBC Morphology Abnormal (NORMAL) A 05/26/21 12:28 Anisocytosis Slight A 05/26/21 12:28 Macrocytosis Slight A 05/26/21 12:28 Ovalocytes Slight A 05/26/21 12:28 Sodium 139 mmol/L (136-145) 05/29/21 05:43 Corrected Sodium TNP 05/29/21 05:43 Potassium 4.1 mmol/L (3.5-5.1) 05/29/21 05:43 Chloride 103 mmol/L (98-107) 05/29/21 05:43 Carbon Dioxide 22.0 mmol/L (21-32) 05/29/21 05:43 BUN 28 mg/dL (7-18) H 05/29/21 05:43 Creatinine 1.56 mg/dL (0.55-1.02) H 05/29/21 05:43 Est GFR (MDRD) Af Amer 41 (>60) L 05/29/21 05:43 Est GFR (MDRD) Non-Af 34 (>60) L 05/29/21 05:43 Glucose 95 mg/dL (65-99) 05/29/21 05:43 Lactic Acid 1.4 mmol/L (0.4-2.0) 05/26/21 16:12 Calcium 9.5 mg/dL (8.5-10.1) 05/29/21 05:43 Corrected Calcium 10.8 mg/dL (8.5-10.1) H 05/29/21 05:43 Total Bilirubin 0.50 mg/dL (0.2-1.0) 05/29/21 05:43 AST 33 Units/L (15-37) 05/29/21 05:43 ALT 24 Units/L (12-78) 05/29/21 05:43 Alkaline Phosphatase 182 Units/L (46-116) H 05/29/21 05:43 Creatine Kinase 80 Units/L (26-192) 05/29/21 05:43 CK-MB (CK-2) 1.1 ng/mL (0-4.0) 05/29/21 05:43 CK/CKMB % Calc 1.4 % (<4) 05/29/21 05:43 Troponin I < 0.02 ng/mL (0-1.5) 05/29/21 05:43 Total Protein 7.0 g/dL (6.4-8.2) 05/29/21 05:43 Albumin 2.4 g/dL (3.4-5.0) L 05/29/21 05:43 Globulin 4.6 g/dL (2.5-4.5) H 05/29/21 05:43 Albumin/Globulin Ratio 0.5 Ratio (1.1-2.1) L 05/29/21 05:43 Specimen Type Clean catch urine 05/27/21 00:04 Urine Color Yellow (YELLOW) 05/27/21 00:04 Urine Appearance Cloudy (CLEAR) 05/27/21 00:04 Urine pH 7.0 (5.0 - 8.0) 05/27/21 00:04 Ur Specific [place] 1.010 (1.000-1.030) 05/27/21 00:04 Urine Protein 3+ (NEGATIVE) 05/27/21 00:04 Urine Glucose (UA) Negative (NEGATIVE) 05/27/21 00:04 Urine Ketones Negative (NEGATIVE) 05/27/21 00:04 Urine Occult Blood 3+ (NEGATIVE) 05/27/21 00:04 Urine Nitrite Negative (NEGATIVE) 05/27/21 00:04 Urine Bilirubin Negative (NEGATIVE) 05/27/21 00:04 Urine Urobilinogen Normal (NORMAL) 05/27/21 00:04 Ur Leukocyte Esterase 3+ (NEGATIVE) 05/27/21 00:04 Urine RBC None seen /HPF (0-3) 05/27/21 00:04 Urine WBC Tntc /HPF (0-5) A 05/27/21 00:04 Ur Squamous Epith Cells Negative /HPF (NEGATIVE) 05/27/21 00:04 Urine Bacteria 3+ /HPF (NEGATIVE) 05/27/21 00:04 Ur Culture Indicated? Yes/culture set up 05/27/21 00:04 - Plan (1) Acute renal failure Status: Acute Qualifiers: Acute renal failure type: unspecified Qualified Code(s): N17.9 - Acute kidney failure, unspecified Plan: NORMAL SALINE AT 80 ML/HR, INVANZ 0.5G IV DAILY, HEPARIN 5,000 UNITS SC Q12H, SINGULAIR 10MG PO HS, FIORICET 2 TABS PO BID, CORTISPORIN EAR DRIPS TID, XANAX 1MG PO BID, NORVASC 10MG PO HS, TRUMAN 180MG PO DAILY, NEURONTIN 300MG PO HS. (2) Hyponatremia Status: Acute (3) Urinary tract infection Status: Acute Qualifiers: Urinary tract infection type: acute cystitis Hematuria presence: without hematuria Qualified Code(s): N30.00 - Acute cystitis without hematuria (4) Rhabdomyolysis Status: Acute Qualifiers: Rhabdomyolysis type: non-traumatic Qualified Code(s): M62.82 - Rhabdomyolysis (5) Syncopal episodes Status: Acute Qualifiers: Syncope type: unspecified Qualified Code(s): R55 - Syncope and collapse
[2021-05-29] MEDS: FIORICET TAB PO SCH ×2 (10:36→21:15)
[2021-05-29] MEDS ORDERED: SINGULAIR TAB 10 MG PO SCH (21:00)
[2021-05-29] MEDS: SINEquan PO PRN (21:15)
[2021-05-29] MEDS: NEURONTIN CAP 300 MG PO SCH (21:15)
[2021-05-29] MEDS: XANAX PO PRN (21:15)
[2021-05-29] MEDS: NORVASC TAB 10 MG PO SCH (21:30)
[2021-05-30] MEDS: HEPARIN SODIUM INJ 5000 UNITS SC SCH ×2 (02:13→09:37)
[2021-05-30] MEDS: CORTISPORIN OTIC SUSP LEFT EAR SCH (06:05)
[2021-05-30 06:38] LABS: BASOPHILS # (AUTO) 0.1 X10^3/uL (0.0-0.1); BASOPHILS % (AUTO) 0.6 % (0.2-1.0); EOSINOPHILS # (AUTO) 0.1 x10^3/uL (0.0-0.2); HEMATOCRIT 27.4 % (36.0-47.0); HEMOGLOBIN 9.2 g/dL (12.0-16.0); LYMPHOCYTES # (AUTO) 0.7 X10^3/uL (1.3-2.9); MEAN CORPUSCULAR HEMOGLOBIN 33.8 pg (27.0-34.0); MEAN CORPUSCULAR HGB CONC 33.7 g/dL (33.0-35.0); MEAN CORPUSCULAR VOLUME 100.2 fL (80.0-100.0); MEAN PLATELET VOLUME 8.1 fL (7.4-11.0); MONOCYTES # (AUTO) 0.5 x10^3/uL (0.3-0.8); MONOCYTES % (AUTO) 4.2 % (0.0-13.0); NEUTROPHILS # (AUTO) 9.8 x10^3/uL (2.2-4.8); NEUTROPHILS % (AUTO) 88.2 % (42.0-75.0); PLATELET COUNT 451 X10^3/uL (150.0-450.0); RED BLOOD COUNT 2.73 X10^6/uL (3.5-5.4); RED CELL DISTRIBUTION WIDTH 17.5 % (11.6-16.5); WHITE BLOOD COUNT 11.1 X10^3/uL (3.6-10.0)
[2021-05-30 06:55] LABS: ALANINE AMINOTRANSFERASE 21 Units/L (12-78); ALBUMIN 2.2 g/dL (3.4-5.0); ALKALINE PHOSPHATASE 159 Units/L (46-116); ASPARTATE AMINO TRANSFERASE 29 Units/L (15-37); BLOOD UREA NITROGEN 26 mg/dL (7-18); CALCIUM 8.9 mg/dL (8.5-10.1); CARBON DIOXIDE 19.5 mmol/L (21-32); CHLORIDE 104 mmol/L (98-107); COR CA(FOR HYPOALB) 10.3 mg/dL (8.5-10.1); SODIUM 139 mmol/L (136-145); TOTAL PROTEIN 6.3 g/dL (6.4-8.2); eGFR NON BLACK RACES 42 (>60)
[2021-05-30] MEDS ORDERED: ALLEGRA ONE (09:23)
[2021-05-30] MEDS: ALLEGRA PO SCH (09:29)
[2021-05-30] MEDS: FIORICET TAB PO SCH (09:29)
[2021-05-30] MEDS: INVANZ INJ 1 GM VIAL 0.5 GM in NS 50 ML IV 50 ML IV SCH (09:30)
[2021-05-30] MEDS: NS 1000 ML 1,000 ML IV SCH ×2 (09:36→11:36)
[2021-05-30 14:03] VITALS: BP 152/68
== END 2021-05-30 14:02 | disposition home or self-care (01) | DRG 683 ==
LOC: ER 11:48 → MED/SURG 14:17
PROVIDERS: ADMIT Internal Medicine; ATTEND Internal Medicine
DX: I10 Essential (primary) hypertension; M25.551 Pain in right hip; M25.552 Pain in left hip; E87.1 Hypo-osmolality and hyponatremia; N17.8 Other acute kidney failure; R29.6 Repeated falls; M62.82 Rhabdomyolysis; R55 Syncope and collapse; N39.0 Urinary tract infection, site not specified; R51.9 Headache, unspecified; R42 Dizziness and giddiness; K50.90 Crohn's disease, unspecified, without complications

== ENCOUNTER 2023-04-29 15:08 | Observation (INO) ==
[2023-04-29] MEDS ORDERED: NS 1,000 ML IV 1,000 ML ONE (16:03)
--- NOTE | 2023-04-29 16:42 | EKG ---
Test Reason : WEAKNESS, SYNCOPE Blood Pressure : */* mmHG Vent. Rate : 67 BPM Atrial Rate : 67 BPM P-R Int : 188 ms QRS Dur : 74 ms QT Int : 412 ms P-R-T Axes : 65 1 77 degrees QTc Int : 435 ms Normal sinus rhythm Nonspecific ST and T wave abnormality Abnormal ECG No previous ECGs available Confirmed by Jim Rosales ([id number]) on 04/30/2023 7:32:26 PM Referred By: Confirmed By: Jim Rosales
[2023-04-29 16:43] LABS: EOSINOPHILS # (AUTO) 0.1 x10^3/uL (0.0-0.2); MONOCYTES # (AUTO) 0.4 x10^3/uL (0.3-0.8)
[2023-04-29 16:50] LABS: BASOPHILS % (AUTO) 0.8 % (0.2-1.0); EOSINOPHILS % (AUTO) 2.5 % (0.9-2.9); HEMATOCRIT 29.5 % (36.0-47.0); HEMOGLOBIN 10.5 g/dL (12.0-16.0); LYMPHOCYTES # (AUTO) 1.6 X10^3/uL (1.3-2.9); LYMPHOCYTES % (AUTO) 28.2 % (21.0-51.0); MEAN CORPUSCULAR HEMOGLOBIN 37.7 pg (27.0-34.0); MEAN CORPUSCULAR HGB CONC 35.5 g/dL (33.0-35.0); MEAN CORPUSCULAR VOLUME 106.4 fL (80.0-100.0); MEAN PLATELET VOLUME 8.3 fL (7.4-11.0); MONOCYTES % (AUTO) 7.2 % (0.0-13.0); NEUTROPHILS # (AUTO) 3.6 x10^3/uL (2.2-4.8); NEUTROPHILS % (AUTO) 61.3 % (42.0-75.0); PLATELET COUNT 357 X10^3/uL (150.0-450.0); RED BLOOD COUNT 2.77 X10^6/uL (3.5-5.4); RED CELL DISTRIBUTION WIDTH 16.8 % (11.6-16.5); WHITE BLOOD COUNT 5.8 X10^3/uL (3.6-10.0)
[2023-04-29 17:02] LABS: ALANINE AMINOTRANSFERASE 24 Units/L (12-78); ALBUMIN 4.1 g/dL (3.4-5.0); ALKALINE PHOSPHATASE 64 Units/L (46-116); ASPARTATE AMINO TRANSFERASE 27 Units/L (15-37); BLOOD UREA NITROGEN 53 mg/dL (7-18); CALCIUM 8.8 mg/dL (8.5-10.1); CARBON DIOXIDE 27.2 mmol/L (21-32); CHLORIDE 95 mmol/L (98-107); COR NA(FOR HYPERGLY) 133 mmol/L (136-145); CREATINE KINASE 102 Units/L (26-192); CREATININE 1.85 mg/dL (0.55-1.02); GLUCOSE 122 mg/dL (65-99); POTASSIUM 4.6 mmol/L (3.5-5.1); SODIUM 132 mmol/L (136-145); TOTAL PROTEIN 7.1 g/dL (6.4-8.2); eGFR NON BLACK RACES 28 (>60)
[2023-04-29] MEDS: NS 1,000 ML IV 1,000 ML IV SCH (17:08)
[2023-04-29 17:17] VITALS: BMI 25.1
[2023-04-29 17:36] LABS: PLATELET MORPHOLOGY COMMENT NORMAL (NORMAL)
[2023-04-29 17:37] LABS: STOMATOCYTES PRESENT
[2023-04-29 17:40] LABS: TEAR DROP CELLS SLIGHT
[2023-04-29 17:42] LABS: OVALOCYTES PRESENT; POIKILOCYTOSIS SLIGHT
[2023-04-29 19:35] LABS: BILIRUBIN,URINE NEGATIVE (NEGATIVE); BLOOD/HEMOGLOBIN,URINE NEGATIVE (NEGATIVE); GLUCOSE, URINE NEGATIVE (NEGATIVE); KETONES,URINE NEGATIVE (NEGATIVE); LEUKOCYTE ESTERASE ,URINE NEGATIVE (NEGATIVE); NITRITES,URINE NEGATIVE (NEGATIVE); PROTEIN,URINE 2+ (NEGATIVE); UROBILINOGEN,URINE NORMAL (NORMAL)
[2023-04-29 19:43] LABS: APPEARANCE,URINE CLEAR (CLEAR); COLOR,URINE YELLOW (YELLOW)
[2023-04-29 19:44] LABS: BACTERIA,URINE NEGATIVE /HPF (NEGATIVE); RBC,URINE NONE SEEN /HPF (0-3); SQUAMOUS EPITHELIAL CELL,UR NEGATIVE /HPF (NEGATIVE)
--- NOTE | 2023-04-29 20:37 | EKG ---
Test Reason : SOB Blood Pressure : */* mmHG Vent. Rate : 64 BPM Atrial Rate : 64 BPM P-R Int : 194 ms QRS Dur : 94 ms QT Int : 424 ms P-R-T Axes : 35 -33 63 degrees QTc Int : 437 ms Normal sinus rhythm Left axis deviation Minimal voltage criteria for LVH, may be normal variant ( Hood product ) Abnormal ECG When compared with ECG of 29-APR-2023 16:34, (Unconfirmed) QRS duration has increased Nonspecific T wave abnormality no longer evident in Anterior leads Confirmed by Jim Rosales ([id number]) on 04/30/2023 7:31:43 PM Referred By: Confirmed By: Jim Rosales
--- NOTE | 2023-04-30 01:02 | EKG ---
Test Reason : SOB Blood Pressure : */* mmHG Vent. Rate : 62 BPM Atrial Rate : 62 BPM P-R Int : 202 ms QRS Dur : 90 ms QT Int : 430 ms P-R-T Axes : 53 -15 42 degrees QTc Int : 436 ms Normal sinus rhythm Normal ECG Confirmed by Jim Rosales ([id number]) on 04/30/2023 7:31:30 PM Referred By: Confirmed By: Jim Rosales
[2023-04-30] MEDS: NS 1,000 ML IV 1,000 ML IV SCH ×2 (04:42→06:39)
[2023-04-30 04:50] LABS: BASOPHILS # (AUTO) 0.2 X10^3/uL (0.0-0.1); BASOPHILS % (AUTO) 4.4 % (0.2-1.0); EOSINOPHILS # (AUTO) 0.3 x10^3/uL (0.0-0.2); EOSINOPHILS % (AUTO) 6.9 % (0.9-2.9); HEMATOCRIT 27.3 % (36.0-47.0); HEMOGLOBIN 9.8 g/dL (12.0-16.0); LYMPHOCYTES # (AUTO) 1.1 X10^3/uL (1.3-2.9); LYMPHOCYTES % (AUTO) 24.5 % (21.0-51.0); MEAN CORPUSCULAR HEMOGLOBIN 37.8 pg (27.0-34.0); MEAN CORPUSCULAR HGB CONC 35.8 g/dL (33.0-35.0); MEAN CORPUSCULAR VOLUME 105.7 fL (80.0-100.0); MEAN PLATELET VOLUME 8.1 fL (7.4-11.0); MONOCYTES # (AUTO) 0.2 x10^3/uL (0.3-0.8); MONOCYTES % (AUTO) 3.9 % (0.0-13.0); NEUTROPHILS # (AUTO) 2.7 x10^3/uL (2.2-4.8); NEUTROPHILS % (AUTO) 60.3 % (42.0-75.0); PLATELET COUNT 285 X10^3/uL (150.0-450.0); RED BLOOD COUNT 2.58 X10^6/uL (3.5-5.4); RED CELL DISTRIBUTION WIDTH 17.2 % (11.6-16.5); WHITE BLOOD COUNT 4.5 X10^3/uL (3.6-10.0)
[2023-04-30 05:14] LABS: ALANINE AMINOTRANSFERASE 20 Units/L (12-78); ALBUMIN 3.7 g/dL (3.4-5.0); ALKALINE PHOSPHATASE 59 Units/L (46-116); ASPARTATE AMINO TRANSFERASE 24 Units/L (15-37); BLOOD UREA NITROGEN 45 mg/dL (7-18); CALCIUM 8.5 mg/dL (8.5-10.1); CARBON DIOXIDE 27.3 mmol/L (21-32); CHLORIDE 98 mmol/L (98-107); CREATINE KINASE 87 Units/L (26-192); CREATININE 1.67 mg/dL (0.55-1.02); GLUCOSE 87 mg/dL (65-99); POTASSIUM 4.6 mmol/L (3.5-5.1); SODIUM 135 mmol/L (136-145); TOTAL PROTEIN 6.4 g/dL (6.4-8.2); eGFR NON BLACK RACES 31 (>60)
[2023-04-30 05:19] LABS: ANISOCYTOSIS SLIGHT; OVALOCYTES SLIGHT; PLATELET MORPHOLOGY COMMENT NORMAL (NORMAL); STOMATOCYTES SLIGHT
--- NOTE | 2023-04-30 05:45 | EKG ---
Test Reason : SOB Blood Pressure : */* mmHG Vent. Rate : 67 BPM Atrial Rate : 67 BPM P-R Int : 204 ms QRS Dur : 88 ms QT Int : 408 ms P-R-T Axes : 50 -12 64 degrees QTc Int : 431 ms Normal sinus rhythm Normal ECG When compared with ECG of 30-APR-2023 00:03, (Unconfirmed) No significant change was found Confirmed by Jim Rosales ([id number]) on 04/30/2023 5:40:55 PM Referred By: Confirmed By: Jim Rosales
--- NOTE | 2023-04-30 08:10 | RAD ---
HISTORYWEAKNESS, SYNCOPESTUDYCHEST, 1 [id number] trachea is midline. The cardiac silhouette is enlarged with a tortuous thoracic aorta . The lungs are clear without focal infiltrate or effusion. The bony thorax is unremarkable.IMPRESSIONNo acute cardiopulmonary disease.Electronically signed by: JAQUAN DOMINGUEZ (Apr 30, 2023 08:05:24)
[2023-04-30 08:15] VITALS: BP 146/66; PULSE 91; TEMP 98.6; O2SAT 96
[2023-04-30] MEDS ORDERED: XANAX PO PRN (08:30)
[2023-04-30] MEDS ORDERED: TOPROL XL PO SCH (09:00)
[2023-04-30] MEDS ORDERED: NORVASC TAB 10 MG PO SCH (09:00)
[2023-04-30] MEDS ORDERED: IMURAN PO SCH (09:00)
[2023-04-30] MEDS ORDERED: ANAGRELIDE 1 MG PO SCH (09:00)
--- NOTE | 2023-04-30 13:45 | DR.CARTERS ---
Short Stay Summary - Admission Date Date of Admission: 04/29/23 - Discharge Date Discharge Date: 04/30/23 - Admission Diagnoses (1) Fatigue Status: Acute (2) Hyponatremia Status: Acute (3) Syncopal episodes Status: Acute (4) Hyperkalemia Status: Acute - Discharge Medications Discharge Medications: Home Medication List anagrelide 1 mg capsule 1 mg PO DAILY 04/29/23 [History] azathioprine 50 mg tablet 2 tab PO QDAY 04/29/23 [History] cephalexin 500 mg capsule 500 mg PO Q6HR 04/29/23 [History] cetirizine 10 mg tablet 10 mg PO QPM 04/29/23 [History] hydrocortisone 2.5 % topical cream 1 applic topical BID PRN 04/29/23 [History] irbesartan 150 mg-hydrochlorothiazide 12.5 mg tablet 1 tab PO QDAY 04/29/23 [History] metoprolol succinate 25 mg tablet,extended release 24 hr 25 mg PO DAILY 04/29/23 [History] rosuvastatin 20 mg tablet 20 mg PO HS 04/29/23 [History] eszopiclone 3 mg tablet (Lunesta) 3 mg PO HS #30 tabs 04/30/23 [Rx] Prescriptions: eszopiclone [Lunesta] Roly Cook [place] [facility] Hospital Course: IS A 83 YEAR OLD PATIENT OF OURS. SHE PRESENTED TO THE HOSPITAL A DIRECT ADMISSION FROM THE OFFICE FOR TREATMENT OF HYPONATREMIA, HYPERKALEMIA, FATIGUE, AND SYNCOPE. SHE DENIED CHEST PAIN, URI, URINARY SYMPTOMS, OR FEVER. SHE PRESENTED TO THE OFFICE ON 04/29/23 FOR A FOLLOW-UP TO REVIEW RECENT LAB RESULTS. AT THE VISIT, SHE COMPLAINED OF PERSISTENT FATIGUE AND DIZZINESS. SHE REPORTED HAVING A SYNCOPAL EPISODE ABOUT A WEEK AND A HALF AGO. LABS WERE OBTAINED ON 04/25/23 AND REVEALED A MAGNESIUM OF 2.4, GLUCOSE 118, BUN 35, CREATININE 1.54, SODIUM 127, POTASSIUM 5.5, CHLORIDE 90, B12 >2000, RBC2.66, HGB 10.1, HCT 28.8. ALL OTHER LAB VALUES WERE WITHIN NORMAL LIMITS. DECISION WAS MADE TO ADMIT PATIENT TO THE HOSPITAL OBSERVATION STATUS FOR FURTHER EVALUATION AND TREATMENT. HER PMH INCLUDES: ANEMIA, CHRONIC RENAL FAILURE, DEPRESSION, CROHNS DISEASE, DEMENTIA, HTN, GERD, ANXIETY, IBS, HYPERLIPIDEMA, THROMBOCYTOSIS, TYPE 2 DM, INSOMNIA. ON ARRIVAL TO THE HOSPITAL, HER VITALS WERE 97.5-72-19-97%-166/72. LABS WERE OBTAINED. WBC 5.8, RBC 2.77, HGB 10.5, HCT 29.5, PLT COUNT 357, SODIUM 132, POTASSIUM 4.6, BUN 53, CREATININE 1.85, GLUCOSE 122, CALCIUM 8.8, TOTAL BILI 0.50, AST 27, ALT 24, ALK PHOS 64, CREATINE KINASE 102, TROPONIN 208.8, BNP 256, TOTAL PROTEIN 7.1, ALBUMIN 4.1. URINALYSIS WAS OBTAINED AND WAS UNREMARKABLE. A URINE CULTURE WAS SET UP. CHEST XRAY WAS OBTAINED AND WAS NEGATIVE FOR ACUTE ABNORMALITIES. EKG WAS OBTAINED AND REVEALED: NORMAL SINUS RHYTHM WITH HR 67 BPM. SHE WAS STARTED ON NORMAL SALINE AT 80 ML/HR. HER HOME MEDICATIONS OF ANAGRELIDE, XANAX, AMLODIPINE, AZATHIOPRINE, CETIRIZINE, GABAPENTIN, METOPROLOL, ROSUVASTATIN, AND ZOLPIDEM WERE RESUMED. WE PLANNED TO OBTAIN SERIAL CARDIAC ENZYMES AND EKGs. OTHERWISE, WE PLANNED TO FOLLOW-UP WITH AM LABS AND CONTINUE TO MONITOR. ON THE MORNING FOLLOWING ADMISSION, PATIENT IS ALERT AND ORIENTED, SITTING UP IN BED ON MORNING ROUNDS. SHE REPORTS FEELING WELL AND DENIES CURRENT COMPLAINTS. PATIENT STATES, I FEEL MUCH BETTER SINCE GETTING SOME IV FLUIDS. ON EXAMINATION, HEART IS REGULAR IN RATE AND RHYTHM. BILATERAL LUNGS ARE CLEAR TO AUSCULTATION. ABDOMEN IS ROUND, SOFT, AND NON-TENDER WITH NORMAL BOWEL SOUNDS NOTED IN ALL QUADRANTS. GOOD MOVEMENT NOTED TO UPPER AND LOWER EXTREMITIES WITH NO EDEMA NOTED. HER VITALS THIS MORNING ARE: 98.6-91-18-96%-146/66. LABS WERE OBTAINED. WBC 4.5, RBC 2.58, HGB 9.8, HCT 27.3, PLT COUNT 285, SODIUM 135, POTASSIUM 4.6, CHLORIDE 98, BUN 45, CREATININE 1.67, GLUCOSE 87, CALCIUM 8.5, TOTAL BILI 0.40, AST 24, ALT 20, ALK PHOS 59, CREATINE KINASE 87, BNP 227, TOTAL PROTEIN 6.4, ALBUMIN 3.7. HER TROPONIN AT 2045 LAST NIGHT WAS 207.3. AT 0035 THIS MORNING, IT WAS 228.9. AT 0430, IT WAS 251.9. EKGS ALL SHOW NORMAL SINUS RHYTHM WITH NO CHANGES. SHE CONTINUES TO DENY CHEST PAIN, SHORTNESS OF BREATH, NAUSEA, OR FELLINGS OF DIZZINESS THIS MORNING. SHE DENIES ANY OTHER PAIN. PATIENT IS REQUESTING DISCHARGE HOME. WE PLANNED FOR DISCHARGE. INSTRUCTIONS FOR MEDICATIONS AND FOLLOW-UP WERE DISCUSSED WITH PATIENT. SHE VERBALIZED UNDERSTANDING OF ALL ORDERS. WE INSTRUCTED HER TO CONTINUE ALL OF HER CURRENT MEDICATIONS WITH THE EXCEPTION OF THE DOXIPIN. WE WILL DISCONTINUE THIS DUE TO HER CHRONIC LOW SODIUM. WE WILL ADD LUNESTA 3MG HS. WE WILL DISCONTINUE THE ZOLPIDEM SINCE WE ARE STARTING THE LUNESTA. SHE IS INSTRUCTED TO FOLLOW-UP IN THE OFFICE NEXT WEEK. WE WILL ALSO REFER HER TO CARDIOLOGY DUE TO HER INCREASED TROPONIN LEVELS. PATIENT DISCHARGED HOME WITH FAMILY IN STABLE CONDITION. TIME S PENT ON CLINICAL ASSESSMENT, REVIEWING LABS AND IMAGING, DECISION MAKING, DISCHARGE INSTRUCTIONS, PREPARING DISCHARGE PAPERS, AND DOCUMENTATION GREATER THAN 75 MINUTES. - Discharge Plan Disposition: 01 HOME, SELF-CARE Condition: Stable Prescriptions: eszopiclone [Lunesta] 3 mg PO HS #30 tabs - Follow up/Referrals Follow up/Referrals: OZ RAMEY [Nurse Practitioner] - 05/07/23 10:00 am Jim Rosales [STAFF PHYSICIAN] - 05/08/23 9:40 am ([place] office for follow up.) - Instructions Instructions: Hyponatremia, [id number], Form - Blood Pressure Record Sheet, Hypertension, Adult, Acwt-lc-[id number], CK-MB Test, Syncope, Adult, [id number] Additional Instructions: DIET TOLERATED. ACTIVITY TOLERATED. DISCONTINUE DOXEPIN DUE TO CHRONICALLY LOW SODIUM
[2023-04-30] MEDS ORDERED: ZyrTEC TAB 10 MG PO SCH (21:00)
[2023-04-30] MEDS ORDERED: CRESTOR TAB 10 MG PO SCH (21:00)
[2023-04-30] MEDS ORDERED: AMBIEN PO SCH (21:00)
[2023-04-30] MEDS ORDERED: NEURONTIN CAP 300 MG PO SCH (21:00)
== END 2023-04-30 11:30 | disposition home or self-care (01) ==
LOC: MED/SURG
PROVIDERS: ADMIT Internal Medicine; ATTEND Internal Medicine
DX: R53.1 Weakness; R55 Syncope and collapse; R94.31 Abnormal electrocardiogram [ECG] [EKG]; E87.1 Hypo-osmolality and hyponatremia; E87.5 Hyperkalemia; R77.8 Other specified abnormalities of plasma proteins

== ENCOUNTER 2023-06-06 15:51 | Inpatient (IN) ==
[2023-06-06 18:45] VITALS: BMI 24.5
--- NOTE | 2023-06-06 20:45 | EKG ---
Test Reason : WEAKNESS Blood Pressure : */* mmHG Vent. Rate : 84 BPM Atrial Rate : 84 BPM P-R Int : 176 ms QRS Dur : 84 ms QT Int : 376 ms P-R-T Axes : 64 3 71 degrees QTc Int : 444 ms Normal sinus rhythm Normal ECG When compared with ECG of 30-APR-2023 05:37, No significant change was found Confirmed by Jim Rosales ([id number]) on 06/08/2023 7:36:07 AM Referred By: Confirmed By: Jim Rosales
[2023-06-06 20:59] LABS: BASOPHILS # (AUTO) 0.1 X10^3/uL (0.0-0.1); BASOPHILS % (AUTO) 1.4 % (0.2-1.0); EOSINOPHILS # (AUTO) 0.1 x10^3/uL (0.0-0.2); EOSINOPHILS % (AUTO) 1.1 % (0.9-2.9); HEMATOCRIT 20.4 % (36.0-47.0); HEMOGLOBIN 7.1 g/dL (12.0-16.0); LYMPHOCYTES # (AUTO) 1.6 X10^3/uL (1.3-2.9); LYMPHOCYTES % (AUTO) 17.3 % (21.0-51.0); MEAN CORPUSCULAR HEMOGLOBIN 37.1 pg (27.0-34.0); MEAN CORPUSCULAR HGB CONC 34.6 g/dL (33.0-35.0); MEAN CORPUSCULAR VOLUME 107.2 fL (80.0-100.0); MEAN PLATELET VOLUME 7.8 fL (7.4-11.0); MONOCYTES # (AUTO) 0.5 x10^3/uL (0.3-0.8); MONOCYTES % (AUTO) 5.5 % (0.0-13.0); NEUTROPHILS # (AUTO) 6.8 x10^3/uL (2.2-4.8); NEUTROPHILS % (AUTO) 74.7 % (42.0-75.0); PLATELET COUNT 516 X10^3/uL (150.0-450.0); RED BLOOD COUNT 1.91 X10^6/uL (3.5-5.4); RED CELL DISTRIBUTION WIDTH 17.9 % (11.6-16.5); WHITE BLOOD COUNT 9.1 X10^3/uL (3.6-10.0)
[2023-06-06] MEDS ORDERED: ZyrTEC TAB 10 MG PO SCH (21:00)
[2023-06-06] MEDS ORDERED: CRESTOR TAB 10 MG PO SCH (21:00)
[2023-06-06 21:15] LABS: ALANINE AMINOTRANSFERASE 19 Units/L (12-78); ALBUMIN 3.4 g/dL (3.4-5.0); ALKALINE PHOSPHATASE 70 Units/L (46-116); ASPARTATE AMINO TRANSFERASE 25 Units/L (15-37); BLOOD UREA NITROGEN 98 mg/dL (7-18); CARBON DIOXIDE 29.6 mmol/L (21-32); CHLORIDE 97 mmol/L (98-107); COR NA(FOR HYPERGLY) 136 mmol/L (136-145); CREATINE KINASE 112 Units/L (26-192); CREATININE 2.42 mg/dL (0.55-1.02); GLUCOSE 154 mg/dL (65-99); POTASSIUM 4.8 mmol/L (3.5-5.1); SODIUM 135 mmol/L (136-145); TOTAL PROTEIN 6.5 g/dL (6.4-8.2); eGFR NON BLACK RACES 20 (>60)
[2023-06-06 21:16] LABS: BAND NEUTROPHILS % 1 % (0-10)
[2023-06-06 21:17] LABS: PLATELET MORPHOLOGY COMMENT NORMAL (NORMAL)
[2023-06-06] MEDS: ARICEPT TAB 10 MG PO SCH (21:51)
[2023-06-06 21:52] LABS: BILIRUBIN,URINE NEGATIVE (NEGATIVE); BLOOD/HEMOGLOBIN,URINE 1+ (NEGATIVE); GLUCOSE, URINE NEGATIVE (NEGATIVE); KETONES,URINE NEGATIVE (NEGATIVE); LEUKOCYTE ESTERASE ,URINE 3+ (NEGATIVE); NITRITES,URINE NEGATIVE (NEGATIVE); PROTEIN,URINE 2+ (NEGATIVE); UROBILINOGEN,URINE NORMAL (NORMAL)
[2023-06-06] MEDS: NEURONTIN CAP 300 MG PO SCH (21:52)
[2023-06-06] MEDS: SINEquan PO SCH (21:52)
[2023-06-06] MEDS: AMBIEN PO PRN (21:53)
[2023-06-06] MEDS: XANAX PO PRN (21:53)
[2023-06-06] MEDS: NS 1,000 ML IV 1,000 ML IV SCH (21:57)
[2023-06-06 22:02] LABS: APPEARANCE,URINE SLIGHTLY HAZY (CLEAR); COLOR,URINE PALE YELLOW (YELLOW)
[2023-06-06 22:03] LABS: BACTERIA,URINE 2+ /HPF (NEGATIVE); SQUAMOUS EPITHELIAL CELL,UR RARE /HPF (NEGATIVE)
--- NOTE | 2023-06-06 22:26 | CT ---
History: EXPERIENCING STROKE LIKE SYMPTOMS. PT WAS SENT FOR MRI. THE MRI REVEALED PT WAS ACTIVELY HAVING A STROKE PER FAMILY. DROOPING TO LT SIDE OF FACE AND SLURRED SPEECH Relevant Clinical InformationExam :BRAIN W/O CONTechnique: Thin section axial ct images of the brain were obtained from the foramen magnum to the vertex without contrast. Sagittal and coronal reconstructions were also performed.Comparison: CT brain 05/26/2021, MR brain 06/06/2023Findings:The ventricles are within normal limits in size. No midline shift, mass effect or extra-axial fluid collections. No evidence of acute hemorrhage or acute macroinfarction. Mild cortical atrophy compatible with patient's age. Decreased attenuation in the periventricular and subcortical white matter consistent with microvascular ischemic white matter changes. There is an old infarct within the peripheral right cerebellar hemisphere. The recently described small acute infarct on MR of the brain is not identified on the current CT brain.The visualized paranasal sinuses and mastoids are unremarkable. The calvarium is intact.Impression:Mild cortical atrophy with extensive microvascular ischemic white matter changes.Remote infarct right cerebellum.No acute intracranial pathology.Electronically signed by: Igor Mosqueda (Jun 06, 2023 22:25:30)
[2023-06-07 05:36] LABS: ALBUMIN 2.9 g/dL (3.4-5.0); CALCIUM 8.5 mg/dL (8.5-10.1); CARBON DIOXIDE 29.2 mmol/L (21-32); COR CA(FOR HYPOALB) 9.4 mg/dL (8.5-10.1); CREATININE 2.3 mg/dL (0.55-1.02); POTASSIUM 4.4 mmol/L (3.5-5.1); TOTAL PROTEIN 5.5 g/dL (6.4-8.2)
[2023-06-07 05:46] LABS: BASOPHILS % (AUTO) 0.3 % (0.2-1.0); EOSINOPHILS # (AUTO) 0.1 x10^3/uL (0.0-0.2); EOSINOPHILS % (AUTO) 1.2 % (0.9-2.9); LYMPHOCYTES # (AUTO) 1.4 X10^3/uL (1.3-2.9); LYMPHOCYTES % (AUTO) 18.9 % (21.0-51.0); MEAN CORPUSCULAR HEMOGLOBIN 37.6 pg (27.0-34.0); MEAN CORPUSCULAR HGB CONC 35.2 g/dL (33.0-35.0); MEAN CORPUSCULAR VOLUME 106.7 fL (80.0-100.0); MONOCYTES # (AUTO) 0.6 x10^3/uL (0.3-0.8); NEUTROPHILS # (AUTO) 5.4 x10^3/uL (2.2-4.8); NEUTROPHILS % (AUTO) 71.6 % (42.0-75.0); PLATELET COUNT 448 X10^3/uL (150.0-450.0); RED BLOOD COUNT 1.65 X10^6/uL (3.5-5.4); RED CELL DISTRIBUTION WIDTH 18.6 % (11.6-16.5); WHITE BLOOD COUNT 7.6 X10^3/uL (3.6-10.0)
[2023-06-07 05:56] LABS: HEMATOCRIT 17.6 % (36.0-47.0); HEMOGLOBIN 6.2 g/dL (12.0-16.0)
--- NOTE | 2023-06-07 06:10 | RAD ---
HISTORYEXPERIENCING STROKE LIKE SYMPTOMS. PT WAS SENT FOR MRI. THE MRI REVEALED PT WAS ACTIVELY HAVING A STROKE PER FAMILY. DROOPING TO LT SIDE OF FACE AND SLURRED SPEECH Relevant Clinical InformationSTUDYCHEST, 1 [id number] trachea is midline. The cardiac silhouette is unremarkable. The lungs are clear without focal infiltrate or effusion. The bony thorax is unremarkable.IMPRESSIONNo acute cardiopulmonary findings .Electronically signed by: Igor Mosqueda (Jun 07, 2023 06:08:46)
[2023-06-07 06:25] LABS: ANISOCYTOSIS SLIGHT; OVALOCYTES SLIGHT; PLATELET MORPHOLOGY COMMENT NORMAL (NORMAL); STOMATOCYTES SLIGHT
[2023-06-07] MEDS ORDERED: ETODOLAC 300 MG PO SCH (07:00)
[2023-06-07] MEDS: ANAGRELIDE 1 MG PO SCH ×2 (07:34→09:09)
[2023-06-07] MEDS ORDERED: HYDROCHLOROTHIAZIDE 12.5 MG CAP PO SCH (09:00)
[2023-06-07] MEDS ORDERED: PLAVIX PO SCH (09:00)
[2023-06-07] MEDS: TOPROL XL PO SCH (09:09)
[2023-06-07] MEDS: DIOVAN TAB 160 MG PO SCH (09:10)
[2023-06-07] MEDS: NORVASC TAB 5 MG PO SCH (09:10)
[2023-06-07] MEDS: ASPIRIN EC 81 MG PO SCH (09:24)
[2023-06-07] MEDS: IMURAN PO SCH (09:24)
[2023-06-07 09:57] LABS: ANISOCYTOSIS SLIGHT
[2023-06-07] MEDS ORDERED: BENADRYL INJ 50 MG VIAL IVP ONE (10:05)
[2023-06-07] MEDS ORDERED: TYLENOL 325 MG TAB PO PRN (10:05)
[2023-06-07] MEDS: NS 1,000 ML IV 1,000 ML IV SCH ×2 (10:49→23:15)
--- NOTE | 2023-06-07 11:11 | DR.UPDATE ---
H&P Update Prescription drug monitoring program results: PDMP reviewed and no concerns identified H&P Reviewed: Yes Any changes to H&P?: Yes Changes noted:: PRESENTED TO THE OFFICE ON 06/06 FOR A FOLLOW-UP TO REVIEW HER RECENT MRI RESULTS. SHE COMPLAINED OF WEAKNESS, DIZZINESS, SLURRED SPEECH, UNSTEADY GAIT, RIGHT ARM WEAKNESS, MEMORY LOSS. WEAKNESS IS MORE EVIDENT ON THE RIGHT SIDE OF THE BODY. EXAMINATION REVEALED 5/5 POWER TO THE LEFT UPPER AND LOWER EXTREMIES. SHE WAS NOTED TO HAVE 3/5 POWER TO THE RIGHT UPPER EXTREMITY AND 5/5 POWER TO THE RIGHT LOWER EXTREMITY. SHE WAS ALSO NOTED TO HAVE A SLIGHT DROOP OF THE RIGHT SIDE OF THE FACE. 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 PATIENT DOES ADMIT THAT SHE DID HAVE SOME SLURRED SPEECH, WEAKNESS, AND SYNCOPAL EPISODE ON April AND THAT SYMPTOMS FROM THAT EPISODE NEVER COMPLETELY RESOLVED, HOWEVER, WORSENING OF SYMPTOMS STARTED A FEW DAYS AGO. PATIENT WAS ADMITTED TO THE HOSPITAL INPATIENT STATUS FOR FURTHER EVALUATION AND TREATMENT OF ACUTE CVA. ON ARRIVAL TO THE HOSPITAL, VITALS WERE: 9 7.3-79-16-100%(ROOM AIR)-131/67. LABS WERE OBTAINED. WBC 9.1, RBC 1.91, HGB 7.1, HCT 20.4, PLT COUNT 516, SODIUM 135, POTASSIUM 4.8, CHLORIDE 97, BUN 98, CREATININE 2.42, GLUCOSE 154, CALCIUM 9.0, TOTAL BILI 0.40, AST 25, ALT 19, ALK PHOS 70, CREATINE KINASE 112, TROPONIN 26.9, TOTAL PROTEIN 6.5, ALBUMIN 3.4. URINALYSIS REVEALED: WBC 20-30, RBC 5-10, LEUKOCYTES 3+, BACTERIA 2+. A URINE CULTURE WAS SET UP. EKG OBTAINED AND REVEALED: NORMAL SINUS RHYTHM WITH HR 84 BPM. CHEST XRAY REVEALED: NO ACUTE CARDIOPULMONARY FINDINGS. WE WILL OBTAIN A CAROTID DOPPLER AND ECHOCARDIOGRAM WHILE SHE IS HERE. WE WILL TRANSFUSE TWO UNITS OF PACKED RED BLOOD CELLS. WE WILL ALSO DO A TELE-STROKE CONSULT. SHE WAS STARTED ON NORMAL SALINE AT 80 ML/HR. HER HOME MEDICATIONS OF ECOTRIN 81MG DAILY, PLAVIX 75MG DAILY, XANAX, NORVASC, IMURAN, ZYRTEC, ARICEPT, SINEQUAN, NEURONTIN, TOPROL, ROSUVASTATIN, DIOVAN, AND AMBIEN WERE RESUMED. SHE WAS ON ECOTRIN 81MG DAILY AND PLAVIX 75MG DAILY. WE WILL HOLD THESE TEMPORARILY UNTIL WE FIND THE SOURCE OF HER BLEEDING AND GET HER HEMOGLOBIN UP SOME. OTHERWISE, WE WILL FOLLOW-UP WITH AM LABS AND CONTINUE TO MONITOR. TIME SPENT ON CLINICAL ASSESSMENT, REVIEWING LABS AND IMAGING, DECISION MAKING, AND DOCUMENTATION GRATER THAN 75 MINUTES. DX: ACUTE CVA WITH RIGHT SIDED WEAKNESS, SLURRED SPEECH, ACUTE RENAL INSUFFICIENCY, ANEMIA. Patient was examined?: Yes
[2023-06-07] MEDS: XANAX PO PRN ×2 (12:15→21:13)
[2023-06-07] MEDS: ROCEPHIN VIAL 1 GRAM 1 G in NS 100 ML IV 100 ML IV SCH (14:54)
[2023-06-07] MEDS ORDERED: BENADRYL INJ 50 MG VIAL ONE (14:55)
[2023-06-07] MEDS ORDERED: NS 250 ML IV 250 ML IV ONE (14:57)
[2023-06-07] MEDS: COLACE CAP 100 MG PO SCH (21:11)
[2023-06-07] MEDS: ARICEPT TAB 10 MG PO SCH (21:11)
[2023-06-07] MEDS: NEURONTIN CAP 300 MG PO SCH (21:12)
[2023-06-07] MEDS: SINEquan PO SCH (21:12)
[2023-06-07] MEDS: ZyrTEC TAB 10 MG PO SCH (21:12)
[2023-06-07] MEDS: MILK OF MAGNESIA PO SCH (21:12)
[2023-06-07] MEDS: CRESTOR TAB 10 MG PO SCH (21:12)
[2023-06-07] MEDS: AMBIEN PO PRN (21:13)
[2023-06-07 21:59] LABS: HEMATOCRIT 26.1 % (36.0-47.0)
[2023-06-07 22:00] LABS: HEMOGLOBIN 9.1 g/dL (12.0-16.0)
[2023-06-08 05:11] LABS: BASOPHILS % (AUTO) 0.4 % (0.2-1.0); EOSINOPHILS # (AUTO) 0.1 x10^3/uL (0.0-0.2); EOSINOPHILS % (AUTO) 1.6 % (0.9-2.9); HEMATOCRIT 26.2 % (36.0-47.0); HEMOGLOBIN 9.3 g/dL (12.0-16.0); LYMPHOCYTES # (AUTO) 1.1 X10^3/uL (1.3-2.9); LYMPHOCYTES % (AUTO) 18.1 % (21.0-51.0); MEAN CORPUSCULAR HEMOGLOBIN 34.7 pg (27.0-34.0); MEAN CORPUSCULAR HGB CONC 35.5 g/dL (33.0-35.0); MEAN CORPUSCULAR VOLUME 97.9 fL (80.0-100.0); MEAN PLATELET VOLUME 7.9 fL (7.4-11.0); MONOCYTES # (AUTO) 0.6 x10^3/uL (0.3-0.8); MONOCYTES % (AUTO) 9.4 % (0.0-13.0); NEUTROPHILS # (AUTO) 4.2 x10^3/uL (2.2-4.8); NEUTROPHILS % (AUTO) 70.5 % (42.0-75.0); PLATELET COUNT 405 X10^3/uL (150.0-450.0); RED BLOOD COUNT 2.67 X10^6/uL (3.5-5.4); RED CELL DISTRIBUTION WIDTH 21.4 % (11.6-16.5)
[2023-06-08 05:23] LABS: ALANINE AMINOTRANSFERASE 16 Units/L (12-78); ALBUMIN 2.9 g/dL (3.4-5.0); ALKALINE PHOSPHATASE 67 Units/L (46-116); ASPARTATE AMINO TRANSFERASE 23 Units/L (15-37); BLOOD UREA NITROGEN 61 mg/dL (7-18); CALCIUM 8.5 mg/dL (8.5-10.1); CARBON DIOXIDE 27.9 mmol/L (21-32); CHLORIDE 105 mmol/L (98-107); COR CA(FOR HYPOALB) 9.4 mg/dL (8.5-10.1); CREATININE 1.64 mg/dL (0.55-1.02); GLUCOSE 108 mg/dL (65-99); POTASSIUM 4.3 mmol/L (3.5-5.1); SODIUM 140 mmol/L (136-145); TOTAL PROTEIN 5.9 g/dL (6.4-8.2); eGFR NON BLACK RACES 32 (>60)
[2023-06-08] MEDS: NS 1,000 ML IV 1,000 ML IV SCH ×3 (05:27→20:20)
[2023-06-08 06:12] LABS: ANISOCYTOSIS 1+; PLATELET MORPHOLOGY COMMENT NORMAL (NORMAL)
[2023-06-08 06:14] LABS: OVALOCYTES SLIGHT
[2023-06-08] MEDS: MILK OF MAGNESIA PO SCH ×2 (08:24→20:08)
[2023-06-08] MEDS: IMURAN PO SCH (08:51)
[2023-06-08] MEDS: ANAGRELIDE 1 MG PO SCH (08:51)
[2023-06-08] MEDS: TOPROL XL PO SCH (08:52)
[2023-06-08] MEDS: NORVASC TAB 5 MG PO SCH (08:52)
[2023-06-08] MEDS: ROCEPHIN VIAL 1 GRAM 1 G in NS 100 ML IV 100 ML IV SCH (08:53)
[2023-06-08] MEDS: DIOVAN TAB 160 MG PO SCH (08:53)
[2023-06-08] MEDS: ZOSYN VIAL 3.375 GRAMS 3.375 G in NS 100 ML IV 100 ML IV SCH (18:41)
--- NOTE | 2023-06-08 18:58 | PCM.PROG ---
Progress Note - Progress Note for Day of Date of Exam: 06/08/23 - Subjective Subjective: IS CURRENTLY INTPATIENT STATUS FOR TREATMENT OF ACUTE LEFT FRONTAL LOBE CVA WITH RIGHT SIDED WEAKNESS, SLURRED SPEECH, ACUTE RENAL INSUFFICIENCY, UTI, AND ANEMIA. SHE RECEIVED TWO UNITS OF PACKED RED BLOOD CELLS YESTERDAY. TODAY, SHE IS ALERT AND ORIENTED, LYING IN BED ON MORNING ROUNDS. SHE HAS HAD AN UNEVENTFUL NIGHT. SHE CONTINUES WITH COMPLAINTS OF GENERALIZED WEAKNESS, UNSTEADY GAIT, AND SLURRED SPEECH THIS MORNING. SHE DENIES SIGNIFICANT IMPROVEMENT IN SYMPTOMS SINCE ADMISSION. ON EXAMINATION, HEART IS REGULAR IN RATE AND RHYTHM. BILATERAL LUNGS ARE NOTED WITH DIMINISHED LUNG SOUNDS THROUGHOUT. ABDOMEN IS ROUND, SOFT, AND NON-TENDER WITH NORMAL BOWEL SOUNDS NOTED IN ALL QUADRANTS. RIGHT UPPER AND LOWER EXTREMITIES ARE NOTED WITH 3/5 POWER. 5/5 POWER NOTED TO LEFT UPPER AND LOWER EXTREMITIES. NO EDEMA NOTED. HER VITALS THIS MORNING ARE: 97.8-81-23-99%-132/82. LABS WERE OBTAINED. WBC 6.0, RBC 2.67, HGB 9.3, HCT 26.2, PLT COUNT 405, SODIUM 140, POTASSIUM 4.3, CHLORIDE 105, BUN 61, CREATININE 1.64, GLUCOSE 108, CALCIUM 8.5, TOTAL BILI 0.40, AST 23, ALT 16, ALK PHOS 67, TOTAL PROTEIN 5.9, ALBUMIN 2.9. STOOL IS POSITIVE FOR OCCULT BLOOD. URINE CULTURE WAS POSITIVE FOR GROWTH OF E.COLI. SPEECH THERAPY EVALUATED PATIENT YESTERDAY. THEY RECOMMEND A MECHANICAL SOFT DIET WITH THIN LIQUIDS. SHE IS CURRENTLY RECEIVING NORMAL SALINE AT 80 ML/HR AND ZOSYN 3.375G IV TID. HER HOME MEDICATIONS OF ECOTRIN 81MG DAILY, PLAVIX 75MG DAILY, XANAX, NORVASC, IMURAN, ZYRTEC, ARICEPT, SINEQUAN, NEURONTIN, TOPROL, ROSUVASTATIN, DIOVAN, AND AMBIEN WERE RESUMED. WE WILL HOLD THE PLAVIX AND ECOTRIN FOR NOW DUE TO ANEMIA. WE WILL HAVE PHYSICAL THERAPY WORK WITH HER. OTHERWISE, WE WILL FOLLOW UP WITH AM LABS AND CONTINUE TO MONITOR. TIME SPENT ON CLINICAL ASSESSMENT, REVIEWING LA BS AND IMAGING, DECISION MAKING, AND DOCUMENTATION GREATER THAN 45 MINUTES. - Past Medical Family Social History Past Med/Fam/Surg Hx: No changes since H&P Allergies: Allergies levofloxacin [From Levaquin] Allergy (Verified 06/06/23 18:15) meperidine [From Demerol] Allergy (Verified 06/06/23 18:15) - Review of Systems ROS: No change since H&P - Vital Signs and I&O's Vital Signs: Vital Signs Temperature 97.6 F Pulse Rate 77 Pulse Rate 80 Pulse Rate 84 Pulse Rate 77 Pulse Rate 76 Pulse Rate 78 Pulse Rate 77 Pulse Rate 78 Pulse Rate 77 Pulse Rate 76 Pulse Rate 77 Pulse Rate 79 Pulse Rate 80 Pulse Rate 79 Pulse Rate 84 Pulse Rate 87 Pulse Rate 91 Pulse Rate 90 Pulse Rate 89 Pulse Rate 87 Pulse Rate 91 Pulse Rate 86 Pulse Rate 85 Pulse Rate 89 Pulse Rate 92 Pulse Rate 96 Pulse Rate 93 Pulse Rate 94 Pulse Rate 87 Respiratory Rate 21 Respiratory Rate 31 Respiratory Rate 39 Respiratory Rate 24 Respiratory Rate 37 Respiratory Rate 23 Respiratory Rate 19 Respiratory Rate 38 Respiratory Rate 20 Respiratory Rate 27 Respiratory Rate 28 Respiratory Rate 29 Respiratory Rate 23 Respiratory Rate 29 Respiratory Rate 30 Respiratory Rate 40 Respiratory Rate 43 Respiratory Rate 35 Respiratory Rate 31 Respiratory Rate 24 Respiratory Rate 37 Respiratory Rate 35 Respiratory Rate 30 Respiratory Rate 36 Respiratory Rate 32 Respiratory Rate 39 Respiratory Rate 24 Respiratory Rate 50 Respiratory Rate 23 Blood Pressure 142/65 Blood Pressure 136/63 Blood Pressure 139/65 Blood Pressure 115/62 Blood Pressure 130/67 Blood Pressure 139/77 Blood Pressure 141/80 O2 Sat by Pulse Oximetry 100 O2 Sat by Pulse Oximetry 100 O2 Sat by Pulse Oximetry 100 O2 Sat by Pulse Oximetry 100 O2 Sat by Pulse Oximetry 100 O2 Sat by Pulse Oximetry 100 O2 Sat by Pulse Oximetry 100 O2 Sat by Pulse Oximetry 100 O2 Sat by Pulse Oximetry 100 O2 Sat by Pulse Oximetry 96 O2 Sat by Pulse Oximetry 85 O2 Sat by Pulse Oximetry 100 O2 Sat by Pulse Oximetry 98 O2 Sat by Pulse Oximetry 100 O2 Sat by Pulse Oximetry 99 O2 Sat by Pulse Oximetry 98 O2 Sat by Pulse Oximetry 89 O2 Sat by Pulse Oximetry 100 O2 Sat by Pulse Oximetry 100 O2 Sat by Pulse Oximetry 100 O2 Sat by Pulse Oximetry 100 O2 Sat by Pulse Oximetry 98 O2 Sat by Pulse Oximetry 100 O2 Sat by Pulse Oximetry 100 O2 Sat by Pulse Oximetry 95 O2 Sat by Pulse Oximetry 99 O2 Sat by Pulse Oximetry 100 O2 Sat by Pulse Oximetry 98 O2 Sat by Pulse Oximetry 100 Intake and Output: Intake & Output 06/06/23 06/07/23 06/08/2323 11:59 11:59 11:59 11:59 Intake Total 1024 / 4836 6765 / 7394 1449 / 1449 Balance 7460 / 6847 0045 / 6372 1449 / 1449 - Physical Exam Oriented: Normal Ear: Normal Nose: Normal Throat: Normal Respiratory: Normal Cardiovascular: Normal : Normal Auscultation: Bowel Sounds: Normal Palpation: Normal Tenderness: Normal Skin: Normal Musculoskeletal: Motor Deficit Psychiatric: Normal Mood Description: Calm Affect: Normal Speech Pattern: Clear, Appropriate - Laboratory and Diagnostics Result Diagrams: 06/08/23 04:35 06/08/23 04:35 Labs: 06/06/23 21:30 Urine,Clean Catch Urine Culture - Final Escherichia Coli Laboratory WBC 6.0 X10^3/uL (3.6-10.0) 06/08/23 04:35 RBC 2.67 X10^6/uL (3.5-5.4) L 06/08/23 04:35 Hgb 9.3 g/dL (12.0-16.0) L 06/08/23 04:35 Hct 26.2 % (36.0-47.0) L 06/08/23 04:35 MCV 97.9 fL (80.0-100.0) 06/08/23 04:35 MCH 34.7 pg (27.0-34.0) H 06/08/23 04:35 MCHC 35.5 g/dL (33.0-35.0) H 06/08/23 04:35 RDW 21.4 % (11.6-16.5) H 06/08/23 04:35 Plt Count 405 X10^3/uL (150.0-450.0) 06/08/23 04:35 Plt Count Comment Adequate (ADEQUATE) 06/08/23 04:35 MPV 7.9 fL (7.4-11.0) 06/08/23 04:35 Neut % (Auto) 70.5 % (42.0-75.0) 06/08/23 04:35 Lymph % (Auto) 18.1 % (21.0-51.0) L 06/08/23 04:35 [place] % (Auto) 9.4 % (0.0-13.0) 06/08/23 04:35 Eos % (Auto) 1.6 % (0.9-2.9) 06/08/23 04:35 Baso % (Auto) 0.4 % (0.2-1.0) 06/08/23 04:35 Neut # (Auto) 4.2 x10^3/uL (2.2-4.8) 06/08/23 04:35 Lymph # (Auto) 1.1 X10^3/uL (1.3-2.9) L 06/08/23 04:35 [place] # (Auto) 0.6 x10^3/uL (0.3-0.8) 06/08/23 04:35 Eos # (Auto) 0.1 x10^3/uL (0.0-0.2) 06/08/23 04:35 Baso # (Auto) 0.0 X10^3/uL (0.0-0.1) 06/08/23 04:35 Absolute Nucleated RBC 0.5 /100WBC 06/08/23 04:35 Total Counted 100 06/06/23 20:50 Neutrophils % (Manual) 76 % (39-76) 06/06/23 20:50 Band Neutrophils % 1 % (0-10) 06/06/23 20:50 Lymphocytes % (Manual) 16 % (13-43) 06/06/23 20:50 Monocytes % (Manual) 5 % (4-9) 06/06/23 20:50 Eosinophils % (Manual) 2 % (0-6) 06/06/23 20:50 Plt Morphology Comment Normal (NORMAL) 06/08/23 04:35 RBC Morphology Abnormal (NORMAL) A 06/08/23 04:35 Dimorphic RBCs Slight 06/08/23 04:35 Anisocytosis 1+ A 06/08/23 04:35 Macrocytosis 1+ A 06/07/23 04:31 Ovalocytes Slight A 06/08/23 04:35 Stomatocytes Slight A 06/07/23 04:31 Sodium 140 mmol/L (136-145) 06/08/23 04:35 Corrected Sodium TNP 06/08/23 04:35 Potassium 4.3 mmol/L (3.5-5.1) 06/08/23 04:35 Chloride 105 mmol/L (98-107) 06/08/23 04:35 Carbon Dioxide 27.9 mmol/L (21-32) 06/08/23 04:35 BUN 61 mg/dL (7-18) H 06/08/23 04:35 Creatinine 1.64 mg/dL (0.55-1.02) H 06/08/23 04:35 Est GFR (MDRD) Af Amer 39 (>60) L 06/08/23 04:35 Est GFR (MDRD) Non-Af 32 (>60) L 06/08/23 04:35 Glucose 108 mg/dL (65-99) H 06/08/23 04:35 Calcium 8.5 mg/dL (8.5-10.1) 06/08/23 04:35 Corrected Calcium 9.4 mg/dL (8.5-10.1) 06/08/23 04:35 Total Bilirubin 0.40 mg/dL (0.2-1.0) 06/08/23 04:35 AST 23 Units/L (15-37) 06/08/23 04:35 ALT 16 Units/L (12-78) 06/08/23 04:35 Alkaline Phosphatase 67 Units/L (46-116) 06/08/23 04:35 Creatine Kinase 112 Units/L (26-192) 06/06/23 20:50 Troponin I High Sens 26.9 ng/L (4.0-60.0) 06/06/23 20:50 Total Protein 5.9 g/dL (6.4-8.2) L 06/08/23 04:35 Albumin 2.9 g/dL (3.4-5.0) L 06/08/23 04:35 Globulin 3.0 g/dL (2.5-4.5) 06/08/23 04:35 Albumin/Globulin Ratio 1.0 Ratio (1.1-2.1) L 06/08/23 04:35 Specimen Type Clean catch urine 06/06/23 21:30 Urine Color Pale yellow (YELLOW) 06/06/23 21:30 Urine Appearance Slightly hazy (CLEAR) 06/06/23 21:30 Urine pH 8.0 (5.0 - 8.0) 06/06/23 21:30 Ur Specific [place] 1.010 (1.000-1.030) 06/06/23 21:30 Urine Protein 2+ (NEGATIVE) 06/06/23 21:30 Urine Glucose (UA) Negative (NEGATIVE) 06/06/23 21:30 Urine Ketones Negative (NEGATIVE) 06/06/23 21:30 Urine Blood 1+ (NEGATIVE) 06/06/23 21:30 Urine Nitrite Negative (NEGATIVE) 06/06/23 21:30 Urine Bilirubin Negative (NEGATIVE) 06/06/23 21:30 Urine Urobilinogen Normal (NORMAL) 06/06/23 21:30 Ur Leukocyte Esterase 3+ (NEGATIVE) 06/06/23 21:30 Urine RBC 5-10 /HPF (0-3) A 06/06/23 21:30 Urine WBC 20-30 /HPF (0-5) A 06/06/23 21:30 Ur Squamous Epith Cells Rare /HPF (NEGATIVE) 06/06/23 21:30 Urine Bacteria 2+ /HPF (NEGATIVE) 06/06/23 21:30 Urine Mucus Few /HPF (NEGATIVE) 06/06/23 21:30 Ur Culture Indicated? Yes/culture set up 06/06/23 21:30 Stl Occult Blood (IFOB) Positive (NEGATIVE) A 06/08/23 08:20 Blood Type A POSITIVE 06/07/23 10:53 Antibody Screen Negative 06/07/23 10:53 Crossmatch See Detail 06/07/23 10:53 - Plan (1) Acute CVA (cerebrovascular accident) Status: Acute Plan: NORMAL SALINE AT 80 ML/HR AND ZOSYN 3.375G IV TID. HER HOME MEDICATIONS OF XANAX, NORVASC, IMURAN, ZYRTEC, ARICEPT, SINEQUAN, NEURONTIN, TOPROL, ROSUVASTATIN, DIOVAN, AND AMBIEN WERE RESUMED. (2) Right sided weakness Status: Acute (3) Slurred speech Status: Acute (4) Acute renal failure Status: Acute Qualifiers: Acute renal failure type: unspecified Qualified Code(s): N17.9 - Acute kidney failure, unspecified (5) Urinary tract infection Status: Acute Qualifiers: Urinary tract infection type: acute cystitis Hematuria presence: without hematuria Qualified Code(s): N30.00 - Acute cystitis without hematuria (6) Hypertension Status: Chronic Qualifiers: Hypertension type: primary hypertension Qualified Code(s): I10 - Essential (primary) hypertension (7) GERD (gastroesophageal reflux disease) Status: Chronic Qualifiers: Esophagitis presence: esophagitis presence not specified Qualified Code(s): K21.9 - Gastro-esophageal reflux disease without esophagitis (8) MANJULA (generalized anxiety disorder) Status: Chronic
[2023-06-08] MEDS: COLACE CAP 100 MG PO SCH (20:07)
[2023-06-08] MEDS: AMBIEN PO PRN (20:07)
[2023-06-08] MEDS: XANAX PO PRN (20:07)
[2023-06-08] MEDS: SINEquan PO SCH (20:08)
[2023-06-08] MEDS: NEURONTIN CAP 300 MG PO SCH (20:08)
[2023-06-08] MEDS: CRESTOR TAB 10 MG PO SCH (20:08)
[2023-06-08] MEDS: ARICEPT TAB 10 MG PO SCH (20:09)
[2023-06-08] MEDS: ZyrTEC TAB 10 MG PO SCH (20:18)
[2023-06-09] MEDS: NS 1,000 ML IV 1,000 ML IV SCH ×2 (01:22→14:44)
[2023-06-09] MEDS: ZOFRAN INJ 4 MG VIAL IVP PRN (04:39)
[2023-06-09] MEDS: ZOSYN VIAL 3.375 GRAMS 3.375 G in NS 100 ML IV 100 ML IV SCH ×2 (05:03→18:09)
[2023-06-09 05:15] LABS: BASOPHILS # (AUTO) 0.1 X10^3/uL (0.0-0.1); BASOPHILS % (AUTO) 0.8 % (0.2-1.0); EOSINOPHILS # (AUTO) 0.1 x10^3/uL (0.0-0.2); EOSINOPHILS % (AUTO) 1.9 % (0.9-2.9); HEMOGLOBIN 9.5 g/dL (12.0-16.0); LYMPHOCYTES # (AUTO) 1.4 X10^3/uL (1.3-2.9); LYMPHOCYTES % (AUTO) 19.3 % (21.0-51.0); MEAN CORPUSCULAR HEMOGLOBIN 34.6 pg (27.0-34.0); MEAN CORPUSCULAR HGB CONC 35.2 g/dL (33.0-35.0); MEAN CORPUSCULAR VOLUME 98.2 fL (80.0-100.0); MEAN PLATELET VOLUME 8.2 fL (7.4-11.0); MONOCYTES # (AUTO) 0.7 x10^3/uL (0.3-0.8); MONOCYTES % (AUTO) 9.1 % (0.0-13.0); NEUTROPHILS % (AUTO) 68.9 % (42.0-75.0); PLATELET COUNT 395 X10^3/uL (150.0-450.0); RED BLOOD COUNT 2.75 X10^6/uL (3.5-5.4); RED CELL DISTRIBUTION WIDTH 21.6 % (11.6-16.5); WHITE BLOOD COUNT 7.3 X10^3/uL (3.6-10.0)
[2023-06-09 05:34] LABS: ALANINE AMINOTRANSFERASE 15 Units/L (12-78); ALKALINE PHOSPHATASE 71 Units/L (46-116); ASPARTATE AMINO TRANSFERASE 25 Units/L (15-37); BLOOD UREA NITROGEN 43 mg/dL (7-18); CALCIUM 8.5 mg/dL (8.5-10.1); CARBON DIOXIDE 25.6 mmol/L (21-32); CHLORIDE 105 mmol/L (98-107); COR CA(FOR HYPOALB) 9.3 mg/dL (8.5-10.1); CREATININE 1.46 mg/dL (0.55-1.02); GLUCOSE 110 mg/dL (65-99); POTASSIUM 4.5 mmol/L (3.5-5.1); SODIUM 140 mmol/L (136-145); TOTAL PROTEIN 6.1 g/dL (6.4-8.2); eGFR NON BLACK RACES 36 (>60)
[2023-06-09 05:51] LABS: ANISOCYTOSIS 1+; PLATELET MORPHOLOGY COMMENT NORMAL (NORMAL)
[2023-06-09 05:52] LABS: OVALOCYTES SLIGHT
[2023-06-09] MEDS: ANAGRELIDE 1 MG PO SCH (09:20)
[2023-06-09] MEDS: DIOVAN TAB 160 MG PO SCH (09:20)
[2023-06-09] MEDS: IMURAN PO SCH (09:20)
[2023-06-09] MEDS: TOPROL XL PO SCH (09:20)
[2023-06-09] MEDS: NORVASC TAB 5 MG PO SCH (09:20)
[2023-06-09] MEDS: MILK OF MAGNESIA PO SCH ×2 (09:20→20:32)
--- NOTE | 2023-06-09 17:46 | PCM.PROG ---
Progress Note - Progress Note for Day of Date of Exam: 06/09/23 - Subjective Subjective: IS CURRENTLY INTPATIENT STATUS FOR TREATMENT OF ACUTE LEFT FRONTAL LOBE CVA WITH RIGHT SIDED WEAKNESS, SLURRED SPEECH, ACUTE RENAL INSUFFICIENCY, UTI, AND ANEMIA. SHE RECEIVED TWO UNITS OF PACKED RED BLOOD CELLS YESTERDAY. TODAY, SHE IS ALERT AND ORIENTED, LYING IN BED ON MORNING ROUNDS. SHE HAS HAD AN UNEVENTFUL NIGHT. SHE CONTINUES WITH COMPLAINTS OF GENERALIZED WEAKNESS, UNSTEADY GAIT, AND SLURRED SPEECH THIS MORNING. SHE DOES REPORT SLIGHT IMPROVEMENT IN WEAKNESS SINCE ADMISSION. ON EXAMINATION, HEART IS REGULAR IN RATE AND RHYTHM. BILATERAL LUNGS ARE NOTED WITH DIMINISHED LUNG SOUNDS THROUGHOUT. ABDOMEN IS ROUND, SOFT, AND NON-TENDER WITH NORMAL BOWEL SOUNDS NOTED IN ALL QUADRANTS. RIGHT UPPER AND LOWER EXTREMITIES ARE NOTED WITH 4/5 POWER. 5/5 POWER NOTED TO LEFT UPPER AND LOWER EXTREMITIES. NO EDEMA NOTED. HER VITALS THIS MORNING ARE: 98.6-72-20-98%-133/74. LABS WERE OBTAINED. WBC 7.3, RBC 2.75, HGB 9.5, HCT 27.0, PLT COUNT 395, SODIUM 140, POTASSIUM 4.5, CHLORIDE 105, BUN 43, CHLORIDE 1.46, GLUCOSE 110, CALCIUM 8.5, TOTAL BILI 0.40, AT 25, ALT 15, ALK PHOS 71, TOTAL PROTEIN 6.1, ALBUMIN 3.0. STOOL IS POSITIVE FOR OCCULT BLOOD. URINE CULTURE WAS POSITIVE FOR GROWTH OF E.COLI. SPEECH THERAPY EVALUATED PATIENT AND RECOMMEND A MECHANICAL SOFT DIET WITH THIN LIQUIDS. SHE IS CURRENTLY RECEIVING NORMAL SALINE AT 80 ML/HR AND ZOSYN 3.375G IV TID. HER HOME MEDI CATIONS OF ECOTRIN 81MG DAILY, PLAVIX 75MG DAILY, XANAX, NORVASC, IMURAN, ZYRTEC, ARICEPT, SINEQUAN, NEURONTIN, TOPROL, ROSUVASTATIN, DIOVAN, AND AMBIEN WERE RESUMED. WE WILL HOLD THE PLAVIX AND ECOTRIN FOR NOW DUE TO ANEMIA. WE WILL HAVE PHYSICAL THERAPY WORK WITH HER. OTHERWISE, WE WILL FOLLOW UP WITH AM LABS AND CONTINUE TO MONITOR. TIME SPENT ON CLINICAL ASSESSMENT, REVIEWING LABS AND IMAGING, DECISION MAKING, AND DOCUMENTATION GREATER THAN 45 MINUTES. - Past Medical Family Social History Past Med/Fam/Surg Hx: No changes since H&P Allergies: Allergies levofloxacin [From Levaquin] Allergy (Verified 06/06/23 18:15) meperidine [From Demerol] Allergy (Verified 06/06/23 18:15) - Review of Systems ROS: No change since H&P - Vital Signs and I&O's Vital Signs: Vital Signs Temperature 98.4 F Pulse Rate 78 Pulse Rate 84 Pulse Rate 82 Pulse Rate 81 Pulse Rate 81 Pulse Rate 102 Respiratory Rate 18 Respiratory Rate 41 Respiratory Rate 34 Respiratory Rate 23 Respiratory Rate 49 Respiratory Rate 31 Blood Pressure 137/70 Blood Pressure 133/78 Blood Pressure 133/77 O2 Sat by Pulse Oximetry 99 O2 Sat by Pulse Oximetry 99 O2 Sat by Pulse Oximetry 98 O2 Sat by Pulse Oximetry 99 O2 Sat by Pulse Oximetry 100 O2 Sat by Pulse Oximetry 92 Intake and Output: Intake & Output 06/07/23 06/08/23 06/09/23 06/10/23 11:59 11:59 11:59 11:59 Intake Total 1024 / 1024 3665 / 3665 2650 / 2650 120 / 120 Balance 1024 / 1024 3665 / 3665 2650 / 2650 120 / 120 - Physical Exam Oriented: Normal Eyes: Normal Ear: Normal Nose: Normal Throat: Normal Respiratory: Normal Cardiovascular: Normal : Normal Auscultation: Bowel Sounds: Normal Palpation: Normal Tenderness: Normal Skin: Normal Musculoskeletal: Motor Deficit Psychiatric: Normal Mood Description: Calm Affect: Normal Speech Pattern: Appropriate, Slurred - Laboratory and Diagnostics Result Diagrams: 06/09/23 04:09 06/09/23 04:09 Labs: 06/06/23 21:30 Urine,Clean Catch Urine Culture - Final Escherichia Coli Laboratory WBC 7.3 X10^3/uL (3.6-10.0) 06/09/23 04:09 RBC 2.75 X10^6/uL (3.5-5.4) L 06/09/23 04:09 Hgb 9.5 g/dL (12.0-16.0) L 06/09/23 04:09 Hct 27.0 % (36.0-47.0) L 06/09/23 04:09 MCV 98.2 fL (80.0-100.0) 06/09/23 04:09 MCH 34.6 pg (27.0-34.0) H 06/09/23 04:09 MCHC 35.2 g/dL (33.0-35.0) H 06/09/23 04:09 RDW 21.6 % (11.6-16.5) H 06/09/23 04:09 Plt Count 395 X10^3/uL (150.0-450.0) 06/09/23 04:09 Plt Count Comment Adequate (ADEQUATE) 06/09/23 04:09 MPV 8.2 fL (7.4-11.0) 06/09/23 04:09 Neut % (Auto) 68.9 % (42.0-75.0) 06/09/23 04:09 Lymph % (Auto) 19.3 % (21.0-51.0) L 06/09/23 04:09 [place] % (Auto) 9.1 % (0.0-13.0) 06/09/23 04:09 Eos % (Auto) 1.9 % (0.9-2.9) 06/09/23 04:09 Baso % (Auto) 0.8 % (0.2-1.0) 06/09/23 04:09 Neut # (Auto) 5.0 x10^3/uL (2.2-4.8) H 06/09/23 04:09 Lymph # (Auto) 1.4 X10^3/uL (1.3-2.9) 06/09/23 04:09 [place] # (Auto) 0.7 x10^3/uL (0.3-0.8) 06/09/23 04:09 Eos # (Auto) 0.1 x10^3/uL (0.0-0.2) 06/09/23 04:09 Baso # (Auto) 0.1 X10^3/uL (0.0-0.1) 06/09/23 04:09 Absolute Nucleated RBC 0.3 /100WBC 06/09/23 04:09 Total Counted 100 06/06/23 20:50 Neutrophils % (Manual) 76 % (39-76) 06/06/23 20:50 Band Neutrophils % 1 % (0-10) 06/06/23 20:50 Lymphocytes % (Manual) 16 % (13-43) 06/06/23 20:50 Monocytes % (Manual) 5 % (4-9) 06/06/23 20:50 Eosinophils % (Manual) 2 % (0-6) 06/06/23 20:50 Plt Morphology Comment Normal (NORMAL) 06/09/23 04:09 RBC Morphology Abnormal (NORMAL) A 06/09/23 04:09 Dimorphic RBCs Slight 06/09/23 04:09 Anisocytosis 1+ A 06/09/23 04:09 Macrocytosis 1+ A 06/07/23 04:31 Ovalocytes Slight A 06/09/23 04:09 Stomatocytes Slight A 06/07/23 04:31 Sodium 140 mmol/L (136-145) 06/09/23 04:09 Corrected Sodium TNP 06/09/23 04:09 Potassium 4.5 mmol/L (3.5-5.1) 06/09/23 04:09 Chloride 105 mmol/L (98-107) 06/09/23 04:09 Carbon Dioxide 25.6 mmol/L (21-32) 06/09/23 04:09 BUN 43 mg/dL (7-18) H 06/09/23 04:09 Creatinine 1.46 mg/dL (0.55-1.02) H 06/09/23 04:09 Est GFR (MDRD) Af Amer 44 (>60) L 06/09/23 04:09 Est GFR (MDRD) Non-Af 36 (>60) L 06/09/23 04:09 Glucose 110 mg/dL (65-99) H 06/09/23 04:09 Calcium 8.5 mg/dL (8.5-10.1) 06/09/23 04:09 Corrected Calcium 9.3 mg/dL (8.5-10.1) 06/09/23 04:09 Total Bilirubin 0.40 mg/dL (0.2-1.0) 06/09/23 04:09 AST 25 Units/L (15-37) 06/09/23 04:09 ALT 15 Units/L (12-78) 06/09/23 04:09 Alkaline Phosphatase 71 Units/L (46-116) 06/09/23 04:09 Creatine Kinase 112 Units/L (26-192) 06/06/23 20:50 Troponin I High Sens 26.9 ng/L (4.0-60.0) 06/06/23 20:50 Total Protein 6.1 g/dL (6.4-8.2) L 06/09/23 04:09 Albumin 3.0 g/dL (3.4-5.0) L 06/09/23 04:09 Globulin 3.1 g/dL (2.5-4.5) 06/09/23 04:09 Albumin/Globulin Ratio 1.0 Ratio (1.1-2.1) L 06/09/23 04:09 Specimen Type Clean catch urine 06/06/23 21:30 Urine Color Pale yellow (YELLOW) 06/06/23 21:30 Urine Appearance Slightly hazy (CLEAR) 06/06/23 21:30 Urine pH 8.0 (5.0 - 8.0) 06/06/23 21:30 Ur Specific [place] 1.010 (1.000-1.030) 06/06/23 21:30 Urine Protein 2+ (NEGATIVE) 06/06/23 21:30 Urine Glucose (UA) Negative (NEGATIVE) 06/06/23 21:30 Urine Ketones Negative (NEGATIVE) 06/06/23 21:30 Urine Blood 1+ (NEGATIVE) 06/06/23 21:30 Urine Nitrite Negative (NEGATIVE) 06/06/23 21:30 Urine Bilirubin Negative (NEGATIVE) 06/06/23 21:30 Urine Urobilinogen Normal (NORMAL) 06/06/23 21:30 Ur Leukocyte Esterase 3+ (NEGATIVE) 06/06/23 21:30 Urine RBC 5-10 /HPF (0-3) A 06/06/23 21:30 Urine WBC 20-30 /HPF (0-5) A 06/06/23 21:30 Ur Squamous Epith Cells Rare /HPF (NEGATIVE) 06/06/23 21:30 Urine Bacteria 2+ /HPF (NEGATIVE) 06/06/23 21:30 Urine Mucus Few /HPF (NEGATIVE) 06/06/23 21:30 Ur Culture Indicated? Yes/culture set up 06/06/23 21:30 Stl Occult Blood (IFOB) Positive (NEGATIVE) A 06/08/23 08:20 Blood Type A POSITIVE 06/07/23 10:53 Antibody Screen Negative 06/07/23 10:53 Crossmatch See Detail 06/07/23 10:53 - Plan (1) Acute CVA (cerebrovascular accident) Status: Acute Plan: NORMAL SALINE AT 80 ML/HR AND ZOSYN 3.375G IV TID. HER HOME MEDICATIONS OF XANAX, NORVASC, IMURAN, ZYRTEC, ARICEPT, SINEQUAN, NEURONTIN, TOPROL, ROSUVASTATIN, DIOVAN, AND AMBIEN WERE RESUMED. (2) Right sided weakness Status: Acute (3) Slurred speech Status: Acute (4) Acute renal failure Status: Acute Qualifiers: Acute renal failure type: unspecified Qualified Code(s): N17.9 - Acute kidney failure, unspecified (5) Urinary tract infection Status: Acute Qualifiers: Urinary tract infection type: acute cystitis Hematuria presence: without hematuria Qualified Code(s): N30.00 - Acute cystitis without hematuria (6) Hypertension Status: Chronic Qualifiers: Hypertension type: primary hypertension Qualified Code(s): I10 - Essential (primary) hypertension (7) GERD (gastroesophageal reflux disease) Status: Chronic Qualifiers: Esophagitis presence: esophagitis presence not specified Qualified Code(s): K21.9 - Gastro-esophageal reflux disease without esophagitis (8) MANJULA (generalized anxiety disorder) Status: Chronic
[2023-06-09] MEDS ORDERED: CELEXA ONE (17:53)
[2023-06-09] MEDS ORDERED: XANAX ONE (18:03)
[2023-06-09] MEDS: XANAX PO PRN (18:11)
[2023-06-09] MEDS: CELEXA PO SCH (18:11)
[2023-06-09] MEDS: ARICEPT TAB 10 MG PO SCH (20:31)
[2023-06-09] MEDS: NEURONTIN CAP 300 MG PO SCH (20:31)
[2023-06-09] MEDS: SINEquan PO SCH (20:31)
[2023-06-09] MEDS: COLACE CAP 100 MG PO SCH (20:31)
[2023-06-09] MEDS: AMBIEN PO PRN (20:31)
[2023-06-09] MEDS: CRESTOR TAB 10 MG PO SCH (20:32)
[2023-06-09] MEDS: ZyrTEC TAB 10 MG PO SCH (20:36)
[2023-06-10] MEDS: NS 1,000 ML IV 1,000 ML IV SCH ×2 (04:48→16:12)
[2023-06-10 05:03] LABS: BASOPHILS # (AUTO) 0.1 X10^3/uL (0.0-0.1); BASOPHILS % (AUTO) 0.7 % (0.2-1.0); EOSINOPHILS # (AUTO) 0.2 x10^3/uL (0.0-0.2); EOSINOPHILS % (AUTO) 2.2 % (0.9-2.9); HEMATOCRIT 28.8 % (36.0-47.0); HEMOGLOBIN 10.1 g/dL (12.0-16.0); LYMPHOCYTES # (AUTO) 2.3 X10^3/uL (1.3-2.9); LYMPHOCYTES % (AUTO) 25.6 % (21.0-51.0); MEAN CORPUSCULAR HEMOGLOBIN 34.9 pg (27.0-34.0); MEAN CORPUSCULAR HGB CONC 35.2 g/dL (33.0-35.0); MEAN CORPUSCULAR VOLUME 99.1 fL (80.0-100.0); MEAN PLATELET VOLUME 8.4 fL (7.4-11.0); MONOCYTES # (AUTO) 0.7 x10^3/uL (0.3-0.8); MONOCYTES % (AUTO) 7.8 % (0.0-13.0); NEUTROPHILS # (AUTO) 5.7 x10^3/uL (2.2-4.8); NEUTROPHILS % (AUTO) 63.7 % (42.0-75.0); PLATELET COUNT 472 X10^3/uL (150.0-450.0); RED CELL DISTRIBUTION WIDTH 20.5 % (11.6-16.5)
[2023-06-10] MEDS: ZOSYN VIAL 3.375 GRAMS 3.375 G in NS 100 ML IV 100 ML IV SCH ×2 (05:03→17:55)
[2023-06-10 05:09] LABS: ALANINE AMINOTRANSFERASE 17 Units/L (12-78); ALBUMIN 3.3 g/dL (3.4-5.0); ALKALINE PHOSPHATASE 72 Units/L (46-116); ASPARTATE AMINO TRANSFERASE 29 Units/L (15-37); BLOOD UREA NITROGEN 36 mg/dL (7-18); CALCIUM 8.5 mg/dL (8.5-10.1); CARBON DIOXIDE 26.2 mmol/L (21-32); CHLORIDE 104 mmol/L (98-107); COR CA(FOR HYPOALB) 9.1 mg/dL (8.5-10.1); CREATININE 1.53 mg/dL (0.55-1.02); GLUCOSE 106 mg/dL (65-99); POTASSIUM 4.6 mmol/L (3.5-5.1); SODIUM 141 mmol/L (136-145); TOTAL PROTEIN 6.5 g/dL (6.4-8.2); eGFR NON BLACK RACES 35 (>60)
[2023-06-10 05:34] LABS: PLATELET MORPHOLOGY COMMENT NORMAL (NORMAL)
[2023-06-10 05:35] LABS: ANISOCYTOSIS 1+; OVALOCYTES SLIGHT
--- NOTE | 2023-06-10 09:44 | PCM.PROG ---
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 SHE RECEIVED TWO UNITS OF PACKED RED BLOOD CELLS ON 06/07. TODAY, SHE IS ALERT AND ORIENTED, LYING IN BED ON MORNING ROUNDS. SHE HAS HAD AN UNEVENTFUL NIGHT. SHE CONTINUES WITH COMPLAINTS OF GENERALIZED WEAKNESS, UNSTEADY GAIT THIS MORNING. SHE DOES REPORT SLIGHT IMPROVEMENT IN WEAKNESS SINCE ADMISSION. ON EXAMINATION, SHE CONTINUES TO HAVE SOME SLURRED SPEECH, BUT THIS IS IMPROVING SINCE ADMISSION. HEART IS REGULAR IN RATE AND RHYTHM. BILATERAL LUNGS ARE NOTED WITH DIMINISHED LUNG SOUNDS THROUGHOUT. ABDOMEN IS ROUND, SOFT, AND NON-TENDER WITH NORMAL BOWEL SOUNDS NOTED IN ALL QUADRANTS. RIGHT UPPER AND LOWER EXTREMITIES ARE NOTED WITH 3/5 POWER. 5/5 POWER NOTED TO LEFT UPPER AND LOWER EXTREMITIES. NO EDEMA NOTED. HER VITALS THIS MORNING ARE: 98.7-81-99-175/76. LABS WERE OBTAINED. WBC 9.0, RBC 2.90, HGB 10.1, HCT 28.8, PLT COUNT 472, SODIUM 141, POTASSIUM 4.6, CHLORIDE 104, BUN 36, CREATININE 1.53, GLUCOSE 106, CALCIUM 8.5, TOTAL BILI 0.40, AST 29, ALT 17, ALK PHOS 72, TOTAL PROTEIN 6.5, ALBUMIN 3.3. STOOL IS POSITIVE FOR OCCULT BLOOD. URINE CULTURE WAS POSITIVE FOR GROWTH OF E.COLI. SPEECH THERAPY EVALUATED PATIENT AND RECOMMEND A MECHANICAL SOFT DIET WITH THIN LIQUIDS. SHE IS CURRENTLY RECEIVING NORMAL SALINE AT 80 ML/HR AND ZOSYN 3.375G IV TID. HER HOME MEDICATIONS OF ECOTRIN 81MG DAILY, PLAVIX 75MG DAILY, XANAX, NORVASC, IMURAN, ZYRTEC, ARICEPT, SINEQUAN, NEURONTIN, TOPROL, ROSUVASTATIN, DIOVAN, AND AMBIEN WERE RESUMED. WE WILL HOLD THE PLAVIX AND ECOTRIN FOR NOW DUE TO ANEMIA. WE WILL CONSULT FOR POSSIBLE ENDOSCOPY DUE TO ANEMIA AND FECAL OCCULT BLOOD. WE WILL HAVE PHYSICAL THERAPY WORK WITH HER TODAY. OTHERWISE, WE WILL FOLLOW UP WITH AM LABS AND CONTINUE TO MONITOR. TIME SPENT ON CLINICAL ASSESSMENT, REVIEWING LABS AND IMAGING, DECISION MAKING, AND DOCUMENTATION GREATER THAN 45 MINUTES. - Past Medical Family Social History Past Med/Fam/Surg Hx: No changes since H&P Allergies: Allergies levofloxacin [From Levaquin] Allergy (Verified 06/06/23 18:15) meperidine [From Demerol] Allergy (Verified 06/06/23 18:15) - Review of Systems ROS: No change since H&P - Vital Signs and I&O's Vital Signs: Vital Signs Temperature 98.7 F Pulse Rate 81 Blood Pressure 175/76 O2 Sat by Pulse Oximetry 99 Intake and Output: Intake & Output 06/07/23 06/08/23 06/09/23 06/10/23 11:59 11:59 11:59 11:59 Intake Total 1024 / 1024 3665 / 3665 2650 / 2650 1325 / 1325 Balance 1024 / 1024 3665 / 3665 2650 / 2650 1325 / 1325 - Physical Exam Oriented: Normal Eyes: Normal Ear: Normal Nose: Normal Throat: Normal Respiratory: Normal Cardiovascular: Normal : Normal Auscultation: Bowel Sounds: Normal Tenderness: Normal Skin: Normal Musculoskeletal: Motor Deficit Psychiatric: Normal Mood Description: Calm Affect: Normal Speech Pattern: Appropriate, Slurred - Laboratory and Diagnostics Result Diagrams: 06/10/23 04:40 06/10/23 04:40 Labs: 06/06/23 21:30 Urine,Clean Catch Urine Culture - Final Escherichia Coli Laboratory WBC 9.0 X10^3/uL (3.6-10.0) 06/10/23 04:40 RBC 2.90 X10^6/uL (3.5-5.4) L 06/10/23 04:40 Hgb 10.1 g/dL (12.0-16.0) L 06/10/23 04:40 Hct 28.8 % (36.0-47.0) L 06/10/23 04:40 MCV 99.1 fL (80.0-100.0) 06/10/23 04:40 MCH 34.9 pg (27.0-34.0) H 06/10/23 04:40 MCHC 35.2 g/dL (33.0-35.0) H 06/10/23 04:40 RDW 20.5 % (11.6-16.5) H 06/10/23 04:40 Plt Count 472 X10^3/uL (150.0-450.0) H 06/10/23 04:40 Plt Count Comment Increased (ADEQUATE) A 06/10/23 04:40 MPV 8.4 fL (7.4-11.0) 06/10/23 04:40 Neut % (Auto) 63.7 % (42.0-75.0) 06/10/23 04:40 Lymph % (Auto) 25.6 % (21.0-51.0) 06/10/23 04:40 [place] % (Auto) 7.8 % (0.0-13.0) 06/10/23 04:40 Eos % (Auto) 2.2 % (0.9-2.9) 06/10/23 04:40 Baso % (Auto) 0.7 % (0.2-1.0) 06/10/23 04:40 Neut # (Auto) 5.7 x10^3/uL (2.2-4.8) H 06/10/23 04:40 Lymph # (Auto) 2.3 X10^3/uL (1.3-2.9) 06/10/23 04:40 [place] # (Auto) 0.7 x10^3/uL (0.3-0.8) 06/10/23 04:40 Eos # (Auto) 0.2 x10^3/uL (0.0-0.2) 06/10/23 04:40 Baso # (Auto) 0.1 X10^3/uL (0.0-0.1) 06/10/23 04:40 Absolute Nucleated RBC 0.2 /100WBC 06/10/23 04:40 Total Counted 100 06/06/23 20:50 Neutrophils % (Manual) 76 % (39-76) 06/06/23 20:50 Band Neutrophils % 1 % (0-10) 06/06/23 20:50 Lymphocytes % (Manual) 16 % (13-43) 06/06/23 20:50 Monocytes % (Manual) 5 % (4-9) 06/06/23 20:50 Eosinophils % (Manual) 2 % (0-6) 06/06/23 20:50 Plt Morphology Comment Normal (NORMAL) 06/10/23 04:40 RBC Morphology Abnormal (NORMAL) A 06/10/23 04:40 Dimorphic RBCs Slight 06/09/23 04:09 Anisocytosis 1+ A 06/10/23 04:40 Macrocytosis 1+ A 06/07/23 04:31 Ovalocytes Slight A 06/10/23 04:40 Stomatocytes Slight A 06/07/23 04:31 Sodium 141 mmol/L (136-145) 06/10/23 04:40 Corrected Sodium TNP 06/10/23 04:40 Potassium 4.6 mmol/L (3.5-5.1) 06/10/23 04:40 Chloride 104 mmol/L (98-107) 06/10/23 04:40 Carbon Dioxide 26.2 mmol/L (21-32) 06/10/23 04:40 BUN 36 mg/dL (7-18) H 06/10/23 04:40 Creatinine 1.53 mg/dL (0.55-1.02) H 06/10/23 04:40 Est GFR (MDRD) Af Amer 42 (>60) L 06/10/23 04:40 Est GFR (MDRD) Non-Af 35 (>60) L 06/10/23 04:40 Glucose 106 mg/dL (65-99) H 06/10/23 04:40 Calcium 8.5 mg/dL (8.5-10.1) 06/10/23 04:40 Corrected Calcium 9.1 mg/dL (8.5-10.1) 06/10/23 04:40 Total Bilirubin 0.40 mg/dL (0.2-1.0) 06/10/23 04:40 AST 29 Units/L (15-37) 06/10/23 04:40 ALT 17 Units/L (12-78) 06/10/23 04:40 Alkaline Phosphatase 72 Units/L (46-116) 06/10/23 04:40 Creatine Kinase 112 Units/L (26-192) 06/06/23 20:50 Troponin I High Sens 26.9 ng/L (4.0-60.0) 06/06/23 20:50 Total Protein 6.5 g/dL (6.4-8.2) 06/10/23 04:40 Albumin 3.3 g/dL (3.4-5.0) L 06/10/23 04:40 Globulin 3.2 g/dL (2.5-4.5) 06/10/23 04:40 Albumin/Globulin Ratio 1.0 Ratio (1.1-2.1) L 06/10/23 04:40 Specimen Type Clean catch urine 06/06/23 21:30 Urine Color Pale yellow (YELLOW) 06/06/23 21:30 Urine Appearance Slightly hazy (CLEAR) 06/06/23 21:30 Urine pH 8.0 (5.0 - 8.0) 06/06/23 21:30 Ur Specific [place] 1.010 (1.000-1.030) 06/06/23 21:30 Urine Protein 2+ (NEGATIVE) 06/06/23 21:30 Urine Glucose (UA) Negative (NEGATIVE) 06/06/23 21: Urine Ketones Negative (NEGATIVE) 06/06/23 21: Urine Blood 1+ (NEGATIVE) 06/06/23 21:30 Urine Nitrite Negative (NEGATIVE) 06/06/23 21: Urine Bilirubin Negative (NEGATIVE) 06/06/23 21:30 Urine Urobilinogen Normal (NORMAL) 06/06/23 21:30 Ur Leukocyte Esterase 3+ (NEGATIVE) 06/06/23 21:30 Urine RBC 5-10 /HPF (0-3) A 06/06/23 21:30 Urine WBC 20-30 /HPF (0-5) A 06/06/23 21:30 Ur Squamous Epith Cells Rare /HPF (NEGATIVE) 06/06/23 21:30 Urine Bacteria 2+ /HPF (NEGATIVE) 06/06/23 21:30 Urine Mucus Few /HPF (NEGATIVE) 06/06/23 21:30 Ur Culture Indicated? Yes/culture set up 06/06/23 21:30 Stl Occult Blood (IFOB) Positive (NEGATIVE) A 06/08/23 08:20 Blood Type A POSITIVE 06/07/23 10:53 Antibody Screen Negative 06/07/23 10:53 Crossmatch See Detail 06/07/23 10:53 - Plan (1) Acute CVA (cerebrovascular accident) Status: Acute Plan: NORMAL SALINE AT 80 ML/HR AND ZOSYN 3.375G IV TID. HER HOME MEDICATIONS OF XANAX, NORVASC, IMURAN, ZYRTEC, ARICEPT, SINEQUAN, NEURONTIN, TOPROL, ROSUVASTATIN, DIOVAN, AND AMBIEN WERE RESUMED. 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) Plan: CONSULT GENERAL SURGERY (6) Urinary tract infection Status: Acute Qualifiers: Urinary tract infection type: acute cystitis Hematuria presence: without hematuria Qualified Code(s): N30.00 - Acute cystitis without hematuria (7) Hypertension Status: Chronic Qualifiers: Hypertension type: primary hypertension Qualified Code(s): I10 - Essential (primary) hypertension (8) GERD (gastroesophageal reflux disease) Status: Chronic Qualifiers: Esophagitis presence: esophagitis presence not specified Qualified Code(s): K21.9 - Gastro-esophageal reflux disease without esophagitis (9) MANJULA (generalized anxiety disorder) Status: Chronic
[2023-06-10] MEDS: DIOVAN TAB 160 MG PO SCH (10:07)
[2023-06-10] MEDS: NORVASC TAB 5 MG PO SCH (10:07)
[2023-06-10] MEDS: CELEXA PO SCH (10:07)
[2023-06-10] MEDS: MILK OF MAGNESIA PO SCH ×2 (10:08→20:57)
[2023-06-10] MEDS: TOPROL XL PO SCH (10:08)
[2023-06-10] MEDS: ANAGRELIDE 1 MG PO SCH (10:14)
[2023-06-10] MEDS: IMURAN PO SCH (10:15)
[2023-06-10] MEDS: PATIENT'S HOME MEDICATION PO SCH (11:57)
[2023-06-10] MEDS: PROTONIX INJ 40 MG VIAL IVP SCH (12:33)
[2023-06-10] MEDS ORDERED: SUPREP BOWEL PREP KIT PO SCH (18:15)
[2023-06-10] MEDS: CRESTOR TAB 10 MG PO SCH (20:55)
[2023-06-10] MEDS: ARICEPT TAB 10 MG PO SCH (20:55)
[2023-06-10] MEDS: COLACE CAP 100 MG PO SCH (20:55)
[2023-06-10] MEDS: ZyrTEC TAB 10 MG PO SCH (20:56)
[2023-06-10] MEDS: SINEquan PO SCH (21:06)
[2023-06-10] MEDS: ZOFRAN INJ 4 MG VIAL IVP PRN (22:24)
[2023-06-10] MEDS: AMBIEN PO PRN (22:31)
[2023-06-11] MEDS: NS 1,000 ML IV 1,000 ML IV SCH ×3 (04:32→18:32)
[2023-06-11] MEDS: ZOSYN VIAL 3.375 GRAMS 3.375 G in NS 100 ML IV 100 ML IV SCH ×2 (06:13→18:01)
[2023-06-11 06:26] LABS: BASOPHILS % (AUTO) 0.6 % (0.2-1.0); EOSINOPHILS # (AUTO) 0.1 x10^3/uL (0.0-0.2); EOSINOPHILS % (AUTO) 1.3 % (0.9-2.9); HEMATOCRIT 27.4 % (36.0-47.0); HEMOGLOBIN 9.5 g/dL (12.0-16.0); LYMPHOCYTES # (AUTO) 1.4 X10^3/uL (1.3-2.9); LYMPHOCYTES % (AUTO) 16.6 % (21.0-51.0); MEAN CORPUSCULAR HEMOGLOBIN 34.3 pg (27.0-34.0); MEAN CORPUSCULAR HGB CONC 34.6 g/dL (33.0-35.0); MEAN PLATELET VOLUME 8.1 fL (7.4-11.0); MONOCYTES # (AUTO) 0.7 x10^3/uL (0.3-0.8); MONOCYTES % (AUTO) 8.8 % (0.0-13.0); NEUTROPHILS # (AUTO) 5.9 x10^3/uL (2.2-4.8); NEUTROPHILS % (AUTO) 72.7 % (42.0-75.0); PLATELET COUNT 479 X10^3/uL (150.0-450.0); RED BLOOD COUNT 2.77 X10^6/uL (3.5-5.4); RED CELL DISTRIBUTION WIDTH 20.2 % (11.6-16.5); WHITE BLOOD COUNT 8.2 X10^3/uL (3.6-10.0)
[2023-06-11 06:32] LABS: ALBUMIN 3.3 g/dL (3.4-5.0); CALCIUM 8.3 mg/dL (8.5-10.1); COR CA(FOR HYPOALB) 8.9 mg/dL (8.5-10.1); CREATININE 1.31 mg/dL (0.55-1.02); POTASSIUM 3.8 mmol/L (3.5-5.1); TOTAL PROTEIN 6.2 g/dL (6.4-8.2)
[2023-06-11 07:08] LABS: ANISOCYTOSIS 1+; OVALOCYTES SLIGHT; PLATELET MORPHOLOGY COMMENT NORMAL (NORMAL)
[2023-06-11] MEDS ORDERED: BUTT CREAM (COMPOUND) TOP PRN (08:20)
[2023-06-11] MEDS ORDERED: ANAGRELIDE 1 MG PO SCH (09:00)
--- NOTE | 2023-06-11 09:01 | VAS ---
HISTORYRight-sided weaknessSTUDYCAROTID USCOMPARISONNone.TECHNIQUERealtime ultrasound, color doppler flow study and the spectral analysis.FINDINGSThere is again seen mild to moderate atherosclerotic calcified and noncalcified plaque bilaterally.RIGHT:The maximum peak systolic velocity of the right PROXIMAL common carotid artery is 93 cm per second.The maximum peak systolic velocity of the right DISTAL common carotid artery is 60 cm per second.The maximum peak systolic velocity of the right PROXIMAL internal carotid artery is 80 cm per second.The maximum peak systolic velocity of the right MID internal carotid artery is 103 cm per second.The maximum peak systolic velocity of the right DISTAL internal carotid artery is 105 cm per second.The maximum peak systolic velocity of the right external carotid artery is 88 cm per second.The peak systolic velocity ratio of the right ICA/CCA ratio is 1.1.LEFT:The maximum peak systolic velocity of the left PROXIMAL common carotid artery is 74 cm per second.The maximum peak systolic velocity of the left DISTAL common carotid artery is 95 cm per second.The maximum end diastolic velocity of the left PROXIMAL internal carotid artery is 102 cm per second.The maximum end diastolic velocity of the left MID internal carotid artery is 143 cm per second.The maximum end diastolic velocity of the left DISTAL internal carotid artery is 138 cm per second.The maximum peak systolic velocity of the left external carotid artery is 140 cm per second.The peak systolic velocity ratio of the left ICA/CCA is 1.5The vertebral arteries are patent and demonstrate normal [antegrade] flow bilaterally.IMPRESSIONIncreased velocity of the distal left ICA with possible 50-70 percent narrowing, base on peak systolic velocities, follow up with CTA is recommended in a patient with a right-sided weakness.No sonographic evidence of hemodynamically significant right ICA stenosis.Electronically signed by: Aurora Ballard (Jun 11, 2023 08:49:30)
[2023-06-11] MEDS ORDERED: ATIVAN INJ 2 MG VIAL IVP ONE (09:59)
[2023-06-11] MEDS: PROTONIX INJ 40 MG VIAL IVP SCH (10:32)
[2023-06-11] MEDS ORDERED: DIPRIVAN VIAL 20 ML ONE ×2 (12:10→12:26)
[2023-06-11] MEDS: TOPROL XL PO SCH (13:06)
[2023-06-11] MEDS: DIOVAN TAB 160 MG PO SCH (13:06)
[2023-06-11] MEDS: CELEXA PO SCH (13:07)
[2023-06-11] MEDS: NORVASC TAB 5 MG PO SCH (13:07)
[2023-06-11] MEDS: MILK OF MAGNESIA PO SCH ×2 (13:09→21:03)
[2023-06-11] MEDS: PATIENT'S HOME MEDICATION PO SCH (13:10)
[2023-06-11] MEDS: CARAFATE PO SCH ×2 (14:43→21:02)
[2023-06-11] MEDS: XANAX PO PRN (14:43)
[2023-06-11] MEDS ORDERED: PROTONIX TAB 40 MG PO ONE (19:52)
[2023-06-11] MEDS: CRESTOR TAB 10 MG PO SCH (20:59)
[2023-06-11] MEDS: COLACE CAP 100 MG PO SCH (20:59)
[2023-06-11] MEDS: PROTONIX TAB 40 MG PO SCH (21:00)
[2023-06-11] MEDS: ARICEPT TAB 10 MG PO SCH (21:00)
[2023-06-11] MEDS: ZyrTEC TAB 10 MG PO SCH (21:01)
[2023-06-11] MEDS: SINEquan PO SCH (21:01)
[2023-06-11] MEDS: AMBIEN PO PRN (21:05)
--- NOTE | 2023-06-11 21:35 | PCM.PROG ---
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 SHE RECEIVED TWO UNITS OF PACKED RED BLOOD CELLS ON 06/07. TODAY, SHE IS ALERT AND ORIENTED, LYING IN BED ON MORNING ROUNDS. SHE HAS HAD AN UNEVENTFUL NIGHT. SHE CONTINUES WITH COMPLAINTS OF GENERALIZED WEAKNESS AND UNSTEADY GAIT THIS MORNING. SHE DOES REPORT SLIGHT IMPROVEMENT IN WEAKNESS SINCE ADMISSION. ADDITIONALLY, SHE COMPLAINS OF SOME INCREASED ANXIETY THIS MORNING DUE TO UPCOMING EGD AND COLONOSCOPY. ON EXAMINATION, HEART IS REGULAR IN RATE AND RHYTHM. BILATERAL LUNGS ARE NOTED WITH DIMINISHED LUNG SOUNDS THROUGHOUT. ABDOMEN IS ROUND, SOFT, AND NON-TENDER WITH NORMAL BOWEL SOUNDS NOTED IN ALL QUADRANTS. RIGHT UPPER AND LOWER EXTREMITIES ARE NOTED WITH 4/5 POWER. 5/5 POWER NOTED TO LEFT UPPER AND LOWER EXTREMITIES. NO EDEMA NOTED. HER VITALS THIS MORNING ARE: 98.0-82-20-98%-173/81. LABS WERE OBTAINED. WBC 8.2, RBC 2.77, HGB 9.5, HCT 27.4, PLT COUNT 479, SODIUM 140, POTASSIUM 3.8, CHLORIDE 105, BUN 26, CREATININE 1.31, GLUCOSE 118, CALCIUM 8.3, AST 30, ALT 8, ALK PHOS 70, TOTAL PROTEIN 6.2, ALBUMIN 3.3. URINE CULTURE WAS POSITIVE FOR GROWTH OF E.COLI. SPEECH THERAPY EVALUATED PATIENT AND RECOMMEND A MECHANICAL SOFT DIET WITH THIN LIQUIDS. SHE IS CURRENTLY RECEIVING NORMAL SALINE AT 80 ML/HR AND ZOSYN 3.375G IV TID. HER HOME MEDICATIONS OF ECOTRIN 81MG DAILY, PLAVIX 75MG DAILY, XANAX, NORVASC, IMURAN, ZYRTEC, ARICEPT, SINEQUAN, NEURONTIN, TOPROL, ROSUVASTATIN, DIOVAN, AND AMBIEN WERE RESUMED. WE WILL HOLD THE PLAVIX AND ECOTRIN FOR NOW DUE TO ANEMIA. WE CONSULTED . HE PLANS FOR AN EGD AND COLONOSCOPY TODAY. WE WILL ADMINISTER SOAP SUDS ENEMAS UNTIL CLEAR, BECAUSE SHE REFUSED TO DRINK MOST OF THE BOWEL PREP. OTHERWISE, WE WILL FOLLOW UP WITH AM LABS AND CONTINUE TO MONITOR. TIME SPENT ON CLINICAL ASSESSMENT, REVIEWING LABS AND IMAGING, DECISION MAKING, AND DOCUMENTATION GREATER THAN 45 MINUTES. - Past Medical Family Social History Past Med/Fam/Surg Hx: No changes since H&P Allergies: Allergies levofloxacin [From Levaquin] Allergy (Verified 06/06/23 18:15) meperidine [From Demerol] Allergy (Verified 06/06/23 18:15) - Review of Systems ROS: No change since H&P - Vital Signs and I&O's Vital Signs: Vital Signs Temperature 98.5 F Temperature 97.2 F Temperature 97.5 F Pulse Rate [Brachial] 81 Pulse Rate 76 Pulse Rate 82 Respiratory Rate 18 Respiratory Rate 18 Respiratory Rate 18 Blood Pressure [Left Arm] 142/71 Blood Pressure 124/71 Blood Pressure 135/65 O2 Sat by Pulse Oximetry 97 O2 Sat by Pulse Oximetry 98 Intake and Output: Intake & Output 06/09/23 06/10/23 06/11/23 06/12/23 11:59 11:59 11:59 11:59 Intake Total 2650 / 2650 1325 / 1325 2014 2296 / 2296 Balance 2650 / 2650 1325 / 1325 2014 2296 / 2296 - Physical Exam Oriented: Normal Eyes: Normal Ear: Normal Nose: Normal Throat: Normal Respiratory: Normal Cardiovascular: Normal : Normal Auscultation: Bowel Sounds: Normal Palpation: Normal Tenderness: Normal Skin: Normal Musculoskeletal: Motor Deficit Psychiatric: Normal Mood Description: Calm Affect: Normal Speech Pattern: Appropriate, Slurred - Laboratory and Diagnostics Result Diagrams: 06/11/23 05:58 06/11/23 05:58 Labs: 06/06/23 21:30 Urine,Clean Catch Urine Culture - Final Escherichia Coli Laboratory WBC 8.2 X10^3/uL (3.6-10.0) 06/11/23 05:58 RBC 2.77 X10^6/uL (3.5-5.4) L 06/11/23 05:58 Hgb 9.5 g/dL (12.0-16.0) L 06/11/23 05:58 Hct 27.4 % (36.0-47.0) L 06/11/23 05:58 MCV 99.0 fL (80.0-100.0) 06/11/23 05:58 MCH 34.3 pg (27.0-34.0) H 06/11/23 05:58 MCHC 34.6 g/dL (33.0-35.0) 06/11/23 05:58 RDW 20.2 % (11.6-16.5) H 06/11/23 05:58 Plt Count 479 X10^3/uL (150.0-450.0) H 06/11/23 05:58 Plt Count Comment Increased (ADEQUATE) A 06/11/23 05:58 MPV 8.1 fL (7.4-11.0) 06/11/23 05:58 Neut % (Auto) 72.7 % (42.0-75.0) 06/11/23 05:58 Lymph % (Auto) 16.6 % (21.0-51.0) L 06/11/23 05:58 [place] % (Auto) 8.8 % (0.0-13.0) 06/11/23 05:58 Eos % (Auto) 1.3 % (0.9-2.9) 06/11/23 05:58 Baso % (Auto) 0.6 % (0.2-1.0) 06/11/23 05:58 Neut # (Auto) 5.9 x10^3/uL (2.2-4.8) H 06/11/23 05:58 Lymph # (Auto) 1.4 X10^3/uL (1.3-2.9) 06/11/23 05:58 [place] # (Auto) 0.7 x10^3/uL (0.3-0.8) 06/11/23 05:58 Eos # (Auto) 0.1 x10^3/uL (0.0-0.2) 06/11/23 05:58 Baso # (Auto) 0.0 X10^3/uL (0.0-0.1) 06/11/23 05:58 Absolute Nucleated RBC 0.1 /100WBC 06/11/23 05:58 Total Counted 100 06/06/23 20:50 Neutrophils % (Manual) 76 % (39-76) 06/06/23 20:50 Band Neutrophils % 1 % (0-10) 06/06/23 20:50 Lymphocytes % (Manual) 16 % (13-43) 06/06/23 20:50 Monocytes % (Manual) 5 % (4-9) 06/06/23 20:50 Eosinophils % (Manual) 2 % (0-6) 06/06/23 20:50 Plt Morphology Comment Normal (NORMAL) 06/11/23 05:58 RBC Morphology Abnormal (NORMAL) A 06/11/23 05:58 Dimorphic RBCs Slight 06/09/23 04:09 Anisocytosis 1+ A 06/11/23 05:58 Macrocytosis 1+ A 06/07/23 04:31 Ovalocytes Slight A 06/11/23 05:58 Stomatocytes Slight A 06/07/23 04:31 Sodium 140 mmol/L (136-145) 06/11/23 05:58 Corrected Sodium 140 mmol/L (136-145) 06/11/23 05:58 Potassium 3.8 mmol/L (3.5-5.1) 06/11/23 05:58 Chloride 105 mmol/L (98-107) 06/11/23 05:58 Carbon Dioxide 28.0 mmol/L (21-32) 06/11/23 05:58 BUN 26 mg/dL (7-18) H 06/11/23 05:58 Creatinine 1.31 mg/dL (0.55-1.02) H 06/11/23 05:58 Est GFR (MDRD) Af Amer 50 (>60) L 06/11/23 05:58 Est GFR (MDRD) Non-Af 41 (>60) L 06/11/23 05:58 Glucose 118 mg/dL (65-99) H 06/11/23 05:58 Calcium 8.3 mg/dL (8.5-10.1) L 06/11/23 05:58 Corrected Calcium 8.9 mg/dL (8.5-10.1) 06/11/23 05:58 Total Bilirubin 0.40 mg/dL (0.2-1.0) 06/11/23 05:58 AST 30 Units/L (15-37) 06/11/23 05:58 ALT 18 Units/L (12-78) 06/11/23 05:58 Alkaline Phosphatase 70 Units/L (46-116) 06/11/23 05:58 Creatine Kinase 112 Units/L (26-192) 06/06/23 20:50 Troponin I High Sens 26.9 ng/L (4.0-60.0) 06/06/23 20:50 Total Protein 6.2 g/dL (6.4-8.2) L 06/11/23 05:58 Albumin 3.3 g/dL (3.4-5.0) L 06/11/23 05:58 Globulin 2.9 g/dL (2.5-4.5) 06/11/23 05:58 Albumin/Globulin Ratio 1.1 Ratio (1.1-2.1) 06/11/23 05:58 Specimen Type Clean catch urine 06/06/23 21:30 Urine Color Pale yellow (YELLOW) 06/06/23 21:30 Urine Appearance Slightly hazy (CLEAR) 06/06/23 21:30 Urine pH 8.0 (5.0 - 8.0) 06/06/23 21:30 Ur Specific [place] 1.010 (1.000-1.030) 06/06/23 21:30 Urine Protein 2+ (NEGATIVE) 06/06/23 21:30 Urine Glucose (UA) Negative (NEGATIVE) 06/06/23 21:30 Urine Ketones Negative (NEGATIVE) 06/06/23 21:30 Urine Blood 1+ (NEGATIVE) 06/06/23 21:30 Urine Nitrite Negative (NEGATIVE) 06/06/23 21:30 Urine Bilirubin Negative (NEGATIVE) 06/06/23 21:30 Urine Urobilinogen Normal (NORMAL) 06/06/23 21:30 Ur Leukocyte Esterase 3+ (NEGATIVE) 06/06/23 21:30 Urine RBC 5-10 /HPF (0-3) A 06/06/23 21:30 Urine WBC 20-30 /HPF (0-5) A 06/06/23 21:30 Ur Squamous Epith Cells Rare /HPF (NEGATIVE) 06/06/23 21:30 Urine Bacteria 2+ /HPF (NEGATIVE) 06/06/23 21:30 Urine Mucus Few /HPF (NEGATIVE) 06/06/23 21:30 Ur Culture Indicated? Yes/culture set up 06/06/23 21:30 Stl Occult Blood (IFOB) Positive (NEGATIVE) A 06/08/23 08:20 Blood Type A POSITIVE 06/07/23 10:53 Antibody Screen Negative 06/07/23 10:53 Crossmatch See Detail 06/07/23 10:53 - Plan (1) Acute CVA (cerebrovascular accident) Status: Acute Plan: NORMAL SALINE AT 80 ML/HR AND ZOSYN 3.375G IV TID. HER HOME MEDICATIONS OF XANAX, NORVASC, IMURAN, ZYRTEC, ARICEPT, SINEQUAN, NEURONTIN, TOPROL, ROSUVASTATIN, DIOVAN, AND AMBIEN WERE RESUMED. 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) Plan: CONSULT GENERAL SURGERY (6) Urinary tract infection Status: Acute Qualifiers: Urinary tract infection type: acute cystitis Hematuria presence: without hematuria Qualified Code(s): N30.00 - Acute cystitis without hematuria (7) Hypertension Status: Chronic Qualifiers: Hypertension type: primary hypertension Qualified Code(s): I10 - Essential (primary) hypertension (8) GERD (gastroesophageal reflux disease) Status: Chronic Qualifiers: Esophagitis presence: esophagitis presence not specified Qualified Code(s): K21.9 - Gastro-esophageal reflux disease without esophagitis (9) MANJULA (generalized anxiety disorder) Status: Chronic
[2023-06-12 05:35] LABS: BASOPHILS # (AUTO) 0.1 X10^3/uL (0.0-0.1); EOSINOPHILS # (AUTO) 0.1 x10^3/uL (0.0-0.2); EOSINOPHILS % (AUTO) 1.8 % (0.9-2.9); HEMOGLOBIN 9.4 g/dL (12.0-16.0); LYMPHOCYTES # (AUTO) 1.5 X10^3/uL (1.3-2.9); LYMPHOCYTES % (AUTO) 19.4 % (21.0-51.0); MEAN CORPUSCULAR HEMOGLOBIN 34.3 pg (27.0-34.0); MEAN CORPUSCULAR HGB CONC 34.8 g/dL (33.0-35.0); MEAN CORPUSCULAR VOLUME 98.6 fL (80.0-100.0); MONOCYTES # (AUTO) 0.6 x10^3/uL (0.3-0.8); MONOCYTES % (AUTO) 7.8 % (0.0-13.0); NEUTROPHILS # (AUTO) 5.3 x10^3/uL (2.2-4.8); PLATELET COUNT 486 X10^3/uL (150.0-450.0); RED BLOOD COUNT 2.74 X10^6/uL (3.5-5.4); RED CELL DISTRIBUTION WIDTH 20.1 % (11.6-16.5); WHITE BLOOD COUNT 7.6 X10^3/uL (3.6-10.0)
[2023-06-12] MEDS: ZOSYN VIAL 3.375 GRAMS 3.375 G in NS 100 ML IV 100 ML IV SCH (05:38)
[2023-06-12] MEDS: CARAFATE PO SCH (05:39)
[2023-06-12 05:52] LABS: ALANINE AMINOTRANSFERASE 18 Units/L (12-78); ALBUMIN 3.2 g/dL (3.4-5.0); ALKALINE PHOSPHATASE 69 Units/L (46-116); ASPARTATE AMINO TRANSFERASE 27 Units/L (15-37); BLOOD UREA NITROGEN 22 mg/dL (7-18); CARBON DIOXIDE 23.8 mmol/L (21-32); CHLORIDE 105 mmol/L (98-107); COR CA(FOR HYPOALB) 8.6 mg/dL (8.5-10.1); CREATININE 1.43 mg/dL (0.55-1.02); GLUCOSE 104 mg/dL (65-99); POTASSIUM 3.8 mmol/L (3.5-5.1); SODIUM 139 mmol/L (136-145); eGFR NON BLACK RACES 37 (>60)
[2023-06-12 06:14] LABS: ANISOCYTOSIS 1+; OVALOCYTES SLIGHT; PLATELET MORPHOLOGY COMMENT NORMAL (NORMAL)
[2023-06-12] MEDS ORDERED: CONSULT PHARMACY - POTASSIUM & MAGNESIUM XX SCH (07:00)
[2023-06-12] MEDS: PATIENT'S HOME MEDICATION PO SCH (08:58)
[2023-06-12] MEDS: ANAGRELIDE 1 MG PO SCH (08:59)
[2023-06-12] MEDS: ASPIRIN EC 81 MG PO SCH (09:00)
[2023-06-12] MEDS ORDERED: PEPCID TAB 20 MG PO SCH (09:00)
[2023-06-12] MEDS ORDERED: HEMOCYTE-PLUS PO SCH (09:00)
[2023-06-12] MEDS ORDERED: K-DUR TAB 20 MEQ PO SCH (09:00)
[2023-06-12] MEDS: TOPROL XL PO SCH (09:00)
[2023-06-12] MEDS: NORVASC TAB 5 MG PO SCH (09:01)
[2023-06-12] MEDS: CELEXA PO SCH (09:01)
[2023-06-12] MEDS: DIOVAN TAB 160 MG PO SCH (09:01)
[2023-06-12] MEDS: PROTONIX TAB 40 MG PO SCH (09:02)
[2023-06-12 10:37] VITALS: BP 163/72; PULSE 76; RESP 20; TEMP 98; O2SAT 96
[2023-06-13] MEDS ORDERED: STERILE WATER IRRIGATION IR ONE (15:08)
== END 2023-06-12 09:50 | DRG 65 ==
LOC: ICU → OBSVTOIN 17:22 → INTOOBSV 17:22 → MED/SURG 06-09 14:30
PROVIDERS: ADMIT Internal Medicine; ATTEND Internal Medicine
DX: N17.8 Other acute kidney failure; R13.11 Dysphagia, oral phase; K57.30 Diverticulosis of large intestine without perforation or abscess without bleeding; R26.89 Other abnormalities of gait and mobility; D64.89 Other specified anemias; K92.1 Melena; R53.1 Weakness; K44.9 Diaphragmatic hernia without obstruction or gangrene; B96.29 Other Escherichia coli [E. coli] as the cause of diseases classified elsewhere; K22.2 Esophageal obstruction; I69.320 Aphasia following cerebral infarction; Z79.01 Long term (current) use of anticoagulants; R42 Dizziness and giddiness; N30.00 Acute cystitis without hematuria; K25.9 Gastric ulcer, unspecified as acute or chronic, without hemorrhage or perforation; R26.81 Unsteadiness on feet; F41.8 Other specified anxiety disorders; I63.89 Other cerebral infarction